=== PATIENT | female | born 1990 | race Caucasian/White ===

== ENCOUNTER → 2019-06-14 18:34 | Outpatient (BNVA) | payer OTHER, SELFPAY | PROVIDERS: Family Provider Nurse Practitioner; PCP General Practice; Visit Provider Nurse Practitioner | DX: R05 Cough (principal) | CPT/HCPCS: 87804 ==

== ENCOUNTER 2019-09-06 17:29 | Emergency (ER) | payer OTHER, SELFPAY ==
[2019-09-06 17:38] VITALS: BP 116/92; PULSE 83; RESP 14; TEMP 36.5; O2SAT 100; BMI 29.2
--- NOTE | 2019-09-06 17:54 | W.ED.BACK ---
HPI - Back Pain/Injury General: Chief Complaint: Back Pain/Injury Stated Complaint: back pain/injury Time Seen by Provider: 09/06/19 17:43 History of Present Illness: HPI Narrative: Patient states 2 days ago she was taking a bag of mulch from the porch to the garden she twisted with a bag motor hand and she felt discomfort in her back she is able continue work all day but when she woke up this morning she is doing a lot worse having problems get up and out of chair actually she is in a lot of pain when she does certain movements and and possibly had a syncopal episode when she had to sit on the toilet and her boyfriend had to help her to the toilet. She has a seizure history but did not have a seizure today. Says her back hurts she has a history this has had MRIs and does have a bulging disc. MD elicited complaint: back pain Pertinent past history: prior back pain Onset (ago): hour(s) Timing: constant Severity: severe Similar Symptoms Previously: Yes Quality: burning Location: right lower back Radiation: right upper leg Exacerbating factors: sitting upright, walking and lifting Relieving factors: supine Context: while lifting and turning/twisting Associated symptoms: Reports no associated symptoms; Deny abdominal pain, chills, fever(s), nausea or vomiting Review of Systems Const: Denies: fever, chills or body aches Eyes: Denies: change in vision or blurry vision ENMT: Denies: throat pain or nasal congestion Card: Denies: chest pain or shortness of breath on exertion Resp: Denies: shortness of breath, productive cough or non-productive cough GI: Denies: abdominal pain, nausea or vomiting Musc: Reports: back pain; Denies: extremity pain Skin/Breast: Denies: rash Neuro: Denies: headache Psych: Denies: anxiety or depression Luciano/Lymph: Denies: easy bruising PFSH ED PFSH: Social History (Updated 06/14/19 @ 18:28 by Deborah Gabriel LPN) Smoking and tobacco status: never smoked Female Reproductive History: Date of last menstrual period: 08/24/19 Physical Exam Const: COMMON NORMALS: no apparent distress, average body habitus and oriented x3 HENMT: COMMON NORMALS: normocephalic HEAD & SCALP: normal to inspection and normocephalic FACE & SINUS: normal facial exam Eye: COMMON NORMALS: conjunctivae normal GENERAL EYE: normal appearance of both eyes CONJUNCTIVA: Yes conjunctivae normal Neck/C-Spine: COMMON NORMALS: no JVD Chest: COMMONS NORMALS: inspection of chest normal Resp: COMMON NORMALS: normal respiratory effort and clear to auscultation bilaterally AUSCULTATION: clear to auscultation bilaterally Cardio: COMMON NORMALS: no JVD, regular rate and regular rhythm RATE: regular rate RHYTHM: regular rhythm GI: COMMON NORMALS: normal to inspection, nondistended, normoactive bowel sounds Back/Pelvis: LUMBAR SPINE/LOWER BACK: Yes pain with ROM, No paraspinal muscle tenderness, Yes straight leg raise positive right and No straight leg raise positive left Extremity: COMMON NORMALS: normal to inspection and full ROM Neuro: COMMON NORMALS: oriented x3 Course Vital Signs: Vital signs: Vital Signs Temperature 97.7 F 09/06/19 17:38 Pulse Rate 83 09/06/19 17:38 Respiratory Rate 14 09/06/19 17:38 Blood Pressure 116/92 09/06/19 17:38 Pulse Oximetry 100 09/06/19 17:38 Discharge Plan Discharge Condition: Good Coding Level of Care Code ED Entry Level Financial Analyst for Meghann Bacon
[2019-09-06] MEDS: cyclobenzaprine 10 mg Tablet PO (18:08)
[2019-09-06] MEDS: HYDROcodone-acetaminophen 7.5-325 mg Tablet 1 TAB PO (18:08)
[2019-09-06] MEDS: predniSONE 20 mg Tablet 60 MG PO (18:08)
[2019-09-06 18:58] VITALS: PULSE 80; RESP 17; O2SAT 100
== END 2019-09-06 18:45 | disposition home or self-care (01) ==
LOC: ER 18:33
PROVIDERS: Emergency Provider Nurse Practitioner Family; Family Provider Nurse Practitioner; PCP General Practice
DX: M54.9 Dorsalgia, unspecified (principal)
CPT/HCPCS: 12345; 99281; 99283; J7512

== ENCOUNTER 2019-10-04 06:57 | Outpatient (CLI) | payer OTHER, SELFPAY ==
--- NOTE | 2019-10-04 07:05 | MR_ITS ---
WS: [id number] MRI LUMBAR SPINE NONCONTRAST HISTORY: RT SIDE Sciatica; back pain, radiculopathy, degenerative disc disease. COMPARISON: None available. TECHNIQUE: Sagittal and axial multisequence imaging is submitted. Mild thoracolumbar scoliosis. No cord compression. Posterior lumbar alignment is straightened. No marrow edema or fracture. Mild disc space narrowing and desiccation at L5-S1. Conus terminates normally at L1-2 disc level. L1-L2: Normal. L2-L3: Normal. L3-L4: Normal. L4-L5: Mild annular disc bulging. Annular fissure in the LEFT foramen. There is a very shallow centra l disc protrusion. Slight encroachment upon the subarticular recesses, LEFT greater than RIGHT and ve ry mild narrowing of the central canal. L5-S1: Moderate to large RIGHT paracentral disc herniation extends into the subarticular recess. Disc herniation measures 10 x 12 mm. There is displacement of the RIGHT S1 nerve root and mass effect upo n the RIGHT lateral thecal sac. There is mild encroachment upon the LEFT subarticular recess due to d isc and facet disease. Mild bilateral foraminal stenosis. MR/MR lumbar spine wo con* [id number] IMPRESSION: 1. Moderate to large RIGHT paracentral disc protrusion extends into the RIGHT subarticular recess at L5-S1 with displacement of the RIGHT S1 nerve root and m ild central stenosis. 2. Mild narrowing of the LEFT subarticular recess at L5-S1. 3. Very minimal narrowing of the central canal and subarticular recesses at L4 -5.
== END 2019-10-04 06:58 | disposition home or self-care (01) ==
LOC: RADSHAW 06:59
PROVIDERS: PCP Nurse Practitioner; Visit Provider Nurse Practitioner
DX: M54.31 Sciatica, right side (principal); M51.36 Other intervertebral disc degeneration, lumbar region; M54.9 Dorsalgia, unspecified; M51.27 Other intervertebral disc displacement, lumbosacral region
CPT/HCPCS: 72148

== ENCOUNTER → 2019-12-05 11:06 | Outpatient (BNVA) | payer OTHER, SELFPAY | PROVIDERS: PCP Nurse Practitioner; Visit Provider Family Medicine | DX: F41.1 Generalized anxiety disorder (principal) | CPT/HCPCS: 80053; 84443; 85025 ==

== ENCOUNTER → 2020-01-22 10:57 | Outpatient (BNVA) | payer OTHER, SELFPAY | PROVIDERS: PCP Nurse Practitioner; Visit Provider Nurse Practitioner Family | DX: Z20.828 Contact with and (suspected) exposure to other viral communicable diseases (principal) | CPT/HCPCS: 87635 ==

== ENCOUNTER → 2020-03-09 15:59 | Outpatient (BNVA) | payer OTHER, SELFPAY | PROVIDERS: PCP Nurse Practitioner; Visit Provider Family Medicine | DX: Z11.59 Encounter for screening for other viral diseases (principal); Z20.828 Contact with and (suspected) exposure to other viral communicable diseases | CPT/HCPCS: 87635 ==

== ENCOUNTER → 2020-04-02 09:24 | Outpatient (BNVA) | payer OTHER, SELFPAY | PROVIDERS: PCP Nurse Practitioner; Visit Provider Surgery | DX: Z20.828 Contact with and (suspected) exposure to other viral communicable diseases (principal) | CPT/HCPCS: 87635 ==

== ENCOUNTER 2020-04-09 10:03 | Day surgery (SDC) | payer OTHER, SELFPAY ==
[2020-04-07 12:43] VITALS: BMI 29.4
[2020-04-09 10:11] VITALS: BP 131/79; PULSE 75; RESP 18; TEMP 36.4; O2SAT 98
[2020-04-09 10:26] LABS: OR HCG Qualitative Urine Negative (Negative)
--- NOTE | 2020-04-09 10:31 | ANES.PREANE2 ---
Pre-Anesthetic Assessment Pre-Anesthetic Assessment: Height/Weight: Height 1.78 m Weight 92.986 kg Temp Pulse Resp BP Pulse Ox 97.6 F 75 18 131/79 98 04/09/20 10:11 04/09/20 10:11 04/09/20 10:11 04/09/20 10:11 04/09/20 10:11 Preop Diagnosis: upper gi symptoms Proposed Procedure: Operation Date: 04/09/20 11:00 Proposed Procedures p EGD 15083 k21.9(Not Applicable) - Jalil Olivier MD Familial anesthetic complications: None Was Beta Aisha taken within 24 hours: N/A Last intake: Intake Last Liquid Date 04/09/20 Last Liquid Time 06:00 Last Solid Date 04/08/20 Last Solid Time 20:30 Social: Social History: No alcohol and No tobacco Comment: occassional Marijuana use Exam: Pre-Anes Outpt Exam: alert, oriented x 3, clear to auscultation bilaterally and regular rate & rhythm Airway: Cervical ROM: WNL MP: 2 Dentition: Other (fillings and permanent retainer) GI: GI: GERD Neuropsych: Neuropsych: Anxiety Anesthetic Plan: ASA status: 1 Anesthesia: MAC Risk of > 500 ml blood loss (7ml/kg in children): No PFSH Anesthesia PFSH: Medical History (Updated 03/30/20 @ 14:34 by Jalil Olivier MD) GERD (gastroesophageal reflux disease) Herniated disc History of anemia Umbilical hernia Surgical History History of removal of cyst sebaceous cyst. Family History Mother Cancer breast Other CAD (coronary artery disease) Diabetes Hypertension Psychiatric illness Rheumatoid arthritis Denies family history of Anesthesia complication Bleeding disorder Social History Smoking and tobacco status: never smoked Alcohol intake: current Alcohol intake frequency: holidays/special occasions only Household members: significant other Marital status: Single Current occupational status: employed History of recent travel: No Female Reproductive History: Date of last menstrual period: 08/24/19 Data Anesthesia Other Labs: Laboratory Results - last 48 hr 04/09/20 10:23 Urine HCG, Qual Negative Cardiac Studies: No Data to Display
[2020-04-09] MEDS: sodium chloride 0.9% 1,000 ML 30 ML IV (10:36)
--- NOTE | 2020-04-09 10:40 | W.PM.OPSUD ---
Surgery/Procedure H&P Update DATE OF PROCEDURE: April 09, 2020 DATE H&P PERFORMED: 03/30/20 H&P UPDATE INFORMATION: I have reviewed H&P completed within last 30 days, I have examined patient prior to procedure and No changes to prior documentation PREOP DIAGNOSIS: upper gi symptoms PLANNED PROCEDURE: Operation Date: 04/09/20 11:00 Proposed Procedures p EGD 03486 k21.9(Not Applicable) - Jalil Olivier MD
[2020-04-09 11:08] VITALS: BP 106/83; PULSE 78; RESP 16; TEMP 36.8; O2SAT 96
[2020-04-09 11:23] VITALS: BP 123/87; PULSE 75; RESP 16; O2SAT 99
== END 2020-04-09 11:40 | disposition home or self-care (01) ==
PROVIDERS: PCP Family Medicine; Visit Provider Surgery
PROC: 0DJ08ZZ Inspection of Upper Intestinal Tract, Via Natural or Artificial Opening Endoscopic (ICD-10-PCS; CPT 43235; principal; 2020-04-09 11:00)
DX: K21.9 Gastro-esophageal reflux disease without esophagitis (principal); K42.9 Umbilical hernia without obstruction or gangrene; K29.70 Gastritis, unspecified, without bleeding
CPT/HCPCS: 12345; 43239; 84703; 88305; J2704; J3490; J7030

== ENCOUNTER 2020-04-21 07:08 | Outpatient (CLI) | payer OTHER, SELFPAY ==
--- NOTE | 2020-04-21 07:15 | US_ITS ---
WS: [id number] RIGHT UPPER QUADRANT ULTRASOUND HISTORY: R10.13 - Epigastric pain COMPARISON: None available. Liver: 15.8 cm in length. Normal size liver. No bile duct dilatation or mass. Gallbladder: Normally distended gallbladder with no stones or wall thickening. CBD: 0.3 cm Pancreas: Normal size and echogenicity. Right kidney: 9.2 cm in length. Normal size and echogenicity. No hydronephrosis or mass. Aorta and IVC: Unremarkable abdominal aorta and IVC. No ascites. US/US gall bladder [id number] IMPRESSION: Normal RIGHT upper quadrant ultrasound.
== END 2020-04-21 07:09 | disposition home or self-care (01) ==
PROVIDERS: PCP Family Medicine; Visit Provider Surgery
DX: R10.13 Epigastric pain (principal)
CPT/HCPCS: 76705

== ENCOUNTER 2020-05-13 09:29 | Outpatient (CLI) | payer OTHER, SELFPAY ==
--- NOTE | 2020-05-13 10:00 | NM_ITS ---
WS: [id number] NUCLEAR MEDICINE HIDA SCAN CLINICAL INFORMATION: R10.11 - Right upper quadrant pain TECHNIQUE: Following intravenous administration of mCi of technetium 99m mebrofenin, images of the ab domen were obtained over the course of 60 minutes. Next, gallbladder ejection fraction was determined by obtaining preprandial and one-hour postprandial images of the gallbladder following oral ingestio n of Ensure. COMPARISON: Ultrasound April 21, 2020 FINDINGS: Normal hepatic uptake at 5 minutes. Gallbladder is visualized by 15 minutes. No evidence of acute cho lecystitis. Normal hepatic excretion. Normal small bowel activity. No evidence of choledocholithiasis . Gallbladder ejection fraction 86% within normal limits. No evidence of chronic cholecystitis. NM/NM hepatobiliary w phar* [id number] IMPRESSION: 1. No evidence of acute or chronic cholecystitis. 2. Gallbladder ejection fraction 86% within normal limits.
== END 2020-05-13 09:30 | disposition home or self-care (01) ==
PROVIDERS: PCP Family Medicine; Visit Provider Surgery
DX: R10.11 Right upper quadrant pain (principal)
CPT/HCPCS: 78227; A9537

== ENCOUNTER → 2020-10-27 11:30 | Outpatient (BNVA) | payer OTHER, SELFPAY | PROVIDERS: PCP Family Medicine; Referring Provider Family Medicine; Visit Provider Nurse Practitioner Women's Health | DX: N92.6 Irregular menstruation, unspecified (principal); Z32.01 Encounter for pregnancy test, result positive | CPT/HCPCS: 81025 ==

== ENCOUNTER → 2020-11-23 11:11 | Outpatient (BNVA) | payer OTHER, SELFPAY | PROVIDERS: PCP Family Medicine; Visit Provider Obstetrics & Gynecology | DX: Z34.01 Encounter for supervision of normal first pregnancy, first trimester (principal); Z83.49 Family history of other endocrine, nutritional and metabolic diseases; F41.1 Generalized anxiety disorder; K21.9 Gastro-esophageal reflux disease without esophagitis | CPT/HCPCS: 80307; 84315; 86592; 86762; 86803; 86850; 86900; 87086; 87340; 87806 ==

== ENCOUNTER → 2021-01-01 08:53 | Outpatient (BNVA) | payer BC, MEDICAID, SELFPAY | PROVIDERS: PCP Family Medicine; Visit Provider Obstetrics & Gynecology | DX: Z34.01 Encounter for supervision of normal first pregnancy, first trimester (principal); F41.1 Generalized anxiety disorder; K21.9 Gastro-esophageal reflux disease without esophagitis; Z83.49 Family history of other endocrine, nutritional and metabolic diseases | CPT/HCPCS: 84315; 85025; 87491; 87591; 87661; 88175 ==

== ENCOUNTER → 2021-02-11 16:02 | Outpatient (BNVA) | payer BC, MEDICAID, SELFPAY | PROVIDERS: PCP Family Medicine; Visit Provider Obstetrics & Gynecology | DX: Z34.01 Encounter for supervision of normal first pregnancy, first trimester (principal) | CPT/HCPCS: 84315; 87077; 87086; 87184 ==

== ENCOUNTER 2021-06-14 18:09 | Inpatient (IN) | payer BC, MEDICAID, SELFPAY ==
[2021-06-14] VITALS (7 sets, daily range): BP systolic 126–140; BP diastolic 78–93; PULSE 72–85; RESP 16; BMI 37.3
[2021-06-14 19:25] LABS: Basophils % 0.4 %; Eosinophils # 0.1 10^3/uL (0.0-0.8); Eosinophils % 0.8 %; Hematocrit 37.2 % (37.0-47.0); Hemoglobin 12.3 g/dL (11.5-15.3); Lymphocytes # 2.7 10^3/uL (0.8-4.8); Lymphocytes % 28.6 %; Mean Corpuscular HGB Conc 33.1 g/dL (30.0-36.0); Mean Corpuscular Hemoglobin 31.5 pg (28.0-34.0); Mean Corpuscular Volume 95.4 fl (81-99); Mean Platelet Volume 10.3 fL (7.4-10.4); Monocytes # 0.5 10^3/uL (0.2-0.9); Monocytes % 5.7 %; Neutrophils # 5.97 10^3/uL (1.8-7.7); Neutrophils % 64.2 %; Nucleated Red Blood Cells % 0 %; Platelet Count 240 10^3/cmm (130-400); Red Cell Distribution Width 12.6 % (12.1-15.1); White Blood Count 9.3 10^3/uL (4.0-10.0)
[2021-06-14] MEDS: miSOPROStol 100 mcg tablet 25 MCG VAGINAL ×2 (19:41→23:45)
[2021-06-14 20:23] LABS: Add Urine Culture? No; Add Urine Microscopic? YES; Bacteria Urine 3+ /hpf; Bilirubin Urine Neg (Negative); Blood Urine 3+ (Negative); Glucose Urine UA Norm (Normal); Ketones Urine 1+ (Negative); Leukocyte Esterase Urine Negative (Negative); Mucus Urine 3+ /hpf; Nitrate Urine Negative (Negative); Protein Urine Neg (Negative); RBC Urine >100 /hpf (0-2); Squamous Epithelial Cell Urine 15-25 /hpf (0-5); Urine Appearance Hazy (CLEAR); Urine Color Yellow (Yellow); Urobilinogen Urine Norm (Negative); WBC Urine 0-4 /hpf (0-5); pH Urine 5 (5-7)
[2021-06-14 20:27] LABS: Amphetamines Screen Urine Negative (Negative); Barbiturates Screen Urine Negative (Negative); Benzodiazepines Screen Urine Negative (Negative); Cocaine Screen Urine Negative (Negative); Opiate Screen Urine Negative (Negative); PCP Screen Urine Negative (Negative); THC Screen Urine Negative (Negative)
[2021-06-14 20:45] LABS: UPRO/UCREAT Ratio 0.12 mg/mg CR; Urine Creatinine 212 mg/dL (28-217); Urine Protein Random 26 mg/dL
[2021-06-14 20:46] LABS: Alanine Aminotransferase 8 U/L (0-33); Albumin Level 3.8 g/dL (3.5-5.2); Alkaline Phosphatase 135 IU/L (35-105); Anion Gap 15.9 (5-19); Aspartate Amino Transferase 14 U/L (0-32); Blood Urea Nitrogen 14 mg/dL (6-20); Calcium 9.4 mg/dL (8.5-10.5); Carbon Dioxide 19 mmol/L (22-29); Chloride 103 mmol/L (98-107); Glucose 102 mg/dL (65-115); Osmolality Calculated 279 mOsm/kg (285-295); Potassium 3.9 mmol/L (3.5-5.1); Sodium 134 mmol/L (136-145); Total Bilirubin 0.2 mg/dL (0.15-1.2); Total Protein 6.8 g/dL (6.6-8.7); Uric Acid 4.7 mg/dL (2.4-5.7)
[2021-06-14 22:00] LABS: Adenovirus Not Detected (NOT DETECT); Chlamydia Pneumoniae Not Detected (NOT DETECT); Coronavirus 229E,HKU1,NL63,OC4 Not Detected (NOT DETECT); Human Metapneumovirus Not Detected (NOT DETECT); Human Rhinovirus/Enterovirus Not Detected (NOT DETECT); Influenza A Not Detected (NOT DETECT); Influenza A H1 Not Detected (NOT DETECT); Influenza A H1-2009 Not Detected (NOT DETECT); Influenza A H3 Not Detected (NOT DETECT); Influenza B Not Detected (NOT DETECT); Mycoplasma Pneumoniae Not Detected (NOT DETECT); Parainfluenza Virus Type 1 Not Detected (NOT DETECT); Parainfluenza Virus Type 2 Not Detected (NOT DETECT); Parainfluenza Virus Type 3 Not Detected (NOT DETECT); Parainfluenza Virus Type 4 Not Detected (NOT DETECT); Respiratory Syncytial Virus A Not Detected (NOT DETECT); Respiratory Syncytial Virus B Not Detected (NOT DETECT); SARS-COV-2 Not Detected (NOT DETECT)
[2021-06-15] VITALS (110 sets, daily range): BP systolic 106–191; BP diastolic 53–114; PULSE 58–91; RESP 16–18; TEMP 36.2–36.4; O2SAT 93–100
[2021-06-15] MEDS: oxytocin 30 UNIT/500 ML BAG IV (08:44)
[2021-06-15] MEDS: lactated ringers 1,000 ML 999 ML IV ×2 (13:22→14:37)
--- NOTE | 2021-06-15 14:50 | PC.NURSE ---
Epidural first epidural attempt resulted in positive test dose catheter removed.
--- NOTE | 2021-06-15 16:42 | P.ANESASSM_ITS ---
Pre-Anesthetic Assessment Height/Weight: Height 1.8 m Weight 121.563 kg Temp Pulse Resp BP Pulse Ox 97.3 F L 72 18 164/78 97 06/15/21 16:30 06/15/21 16:36 06/15/21 15:00 06/15/21 16:36 06/15/21 15:15 Preop Diagnosis: upper gi symptoms Labor epidural Familial anesthetic complications: None Was Beta Aisha taken within 24 hours: N/A Was Clonidine taken within 24 hours: N/A Social No alcohol and No tobacco Exam alert, oriented x 3, clear to auscultation bilaterally and regular rate & rhythm Airway Submandibular: within normal limits Cervical ROM: within normal limits Mallampati: Class II Dentition: full CV/HEM Anemia GI Gastroesophageal Reflux Disease Neuropsych Anxiety Anesthetic Plan ASA status: 2 Anesthesia: Regional (specify below) (Labor epidural) Risk of > 500 ml blood loss (7ml/kg in children): No Medications/Allergies Home Medications Medication Instructions Recorded Confirmed Last Taken Type buspirone 5 mg tablet 5 mg PO TID PRN #90 tab 06/24/20 02/11/21 Unknown Rx prenat.vits,joellen,euv-gvjv-uvwhm 1 tab PO DAILY 11/10/20 02/11/21 Unknown History d-mannose 500 mg capsule 500 mg PO DAILY PRN cap 11/23/20 02/11/21 Unknown History citalopram 10 mg tablet 10 mg PO DAILY #90 tab 02/08/21 02/11/21 Unknown Rx famotidine 20 mg tablet 20 mg PO .ONCE A DAY 90 Days #90 02/08/21 02/11/21 Unknown Rx tab ferrous sulfate 325 mg (65 mg 325 mg PO DAILY 02/08/21 02/11/21 Unknown History iron) tablet sulfamethoxazole 800 1 tab PO BID #14 tab 02/15/21 Unknown Rx mg-trimethoprim 160 mg tablet (Bactrim DS) Allergies Allergy/AdvReac Type Severity Reaction Status Date / Time Penicillins Allergy Mild rash Verified 02/11/21 15:49 st tino Allergy rash Uncoded 02/11/21 15:49 Current Medications Generic Name Dose Route Start Last Admin Trade Name Freq PRN Reason Stop Dose Admin Lactated Ringer's 1,000 mls @ 999 mls/hr 06/14/21 19:14 06/15/21 14:37 Lactated Ringers IV 999 mls/hr .Q1H1M PRN Administration BLEEDING Oxytocin 30 unit in 500 mls @ 1 mls/hr 06/15/21 07:30 06/15/21 12:45 Pitocin IV 30 milliunit/min .Q24H INDER 30 mls/hr Titration Protocol 1 MILLIUNIT/MIN PFSH Anesthesia Medical History GERD (gastroesophageal reflux disease) Herniated disc History of anemia No pertinent past medical history neghx: htn,dm,thyroid,dvt/pe PCP: Dr. Velazquez Umbilical hernia Surgical History H/O esophagogastroduodenoscopy (04/09/20) History of removal of cyst sebaceous cyst- on her cheek Family History Mother Breast cancer dx age 42-- stage 0; mastectomy no adjuvant therapy Grandmother Diabetes Paternal Heart disease Maternal Father Heart disease Hypertension Thyroid disease Denies family history of Colon cancer Ovarian cancer Uterine cancer Stroke Social History Smoking and tobacco status: former smoker Female Reproductive History Date of last menstrual period: 08/24/19 : 1 Data Anesthesia : 06/14/21 18:58 06/14/21 18:50 Short CBC 06/14/21 Range/Units 18:58 WBC 9.3 (4.0-10.0) 10^3/uL Hgb 12.3 (11.5-15.3) g/dL Hct 37.2 (37.0-47.0) % MCV 95.4 (81-99) fl Plt Count 240 (130-400) 10^3/cmm Neut % (Auto) 64.2 % Neut # (Auto) 5.97 (1.8-7.7) 10^3/uL BMP 06/14/21 18:50 Sodium 134 L Potassium 3.9 Chloride 103 Carbon Dioxide 19 L BUN 14 Creatinine 0.5 Glucose 102 Calcium 9.4 Liver Function 06/14/21 Range/Units 18:50 Total Bilirubin 0.2 (0.15-1.2) mg/dL AST 14 (0-32) U/L ALT 8 (0-33) U/L Alkaline Phosphatase 135 H (35-105) IU/L Albumin 3.8 (3.5-5.2) g/dL Urine 06/14/21 Range/Units 18:50 Urine Color Yellow (Yellow) Urine Appearance Hazy A (CLEAR) Urine pH 5 (5-7) Ur Specific [place] 1.020 (1.005-1.030) Urine Protein Neg (Negative) Urine Glucose (UA) Norm (Normal) Urine Ketones 1+ H (Negative) Urine Nitrate Negative (Negative) Urine Bilirubin Neg (Negative) Ur Leukocyte Esterase Negative (Negative) Urine RBC >100 H (0-2) /hpf Urine WBC 0-4 H (0-5) /hpf COVID Results 06/14/21 19:54 Coronavirus 229E (PCR) Not detected SARS-CoV-2 (PCR) Not detected Cardiac Studies: No Data to Display
--- NOTE | 2021-06-15 16:43 | ANES.PROC ---
Anesthesia Procedures Procedure/Date: 06/15/21 Epidural: Time Out Performed: Yes Consents Signed: Procedure Consent Consent: requested by attending/covering physician, from patient, risks and benefits reviewed and patient agrees to proceed Lumbar Level: L3-L4 Epidural position: sitting Epidural procedure: sterile prep of area, 1% lidocaine to numb the area, 18 g needle, neg for paresthesia, test dose given, 1.5% xylocaine 1:200k epi, placed PCEA, no systemic response, sterile dressing applied and 0.2% Ropiavacaine @ mls/hr (13) Additional Comments: RIGO at 8cm, cath at 13cm--took several times to place, not b/c of patient, first kit no needle, second catheter intravascular, third kit needle burred up and finally successful with kit four!
--- NOTE | 2021-06-15 16:45 | PM.MISC ---
Miscellaneous Note Purpose of Documentation: Patient c/o of hot spot , bolused 100mcg fent and 4mls of 0.2% rop.
--- NOTE | 2021-06-15 17:36 | PM.OPHPUD ---
Labor & Delivery H&P Update Date of Procedure: June 15, 2021 Date H&P Performed: 06/14/21 Changes to previous documentation: The patient presented to clinic for routine follow-up at 39 weeks gestation and her blood pressures were still mildly elevated. She had a biophysical profile of 8 out of 8. She was dipping 1+ protein in the urine in clinic. Due to the fact that she was already 39 weeks gestation decision was made to go ahead and proceed with induction Admission Diagnosis: IUP at 39 weeks Induced Hypertension
--- NOTE | 2021-06-15 17:43 | PM.DELIVERY ---
Delivery Note: Date of delivery: June 15, 2021 Pre-delivery diagnoses: IUP at 39 weeks gestation -induced hypertension Procedure: Normal spontaneous vaginal delivery Estimated blood loss (mL): 250 Pre-Delivery Course: The patient had routine care at [facility]. Her was complicated by -induced hypertension. She only had very mildly elevated blood pressures 140/90 occasionally. She did not require antihypertensives. She received weekly biophysical profiles at the end and growth ultrasounds. Her labs were unremarkable. Her 20-week ultrasound showed dilated left renal pelvis. Delivery: This is a 30-year-old G1 now P1 who was admitted for induction secondary to -induced hypertension. Her cervix was not very favorable so it was ripened overnight using Cytotec. She was then started on a Pitocin. She had artificial rupture of membranes with a copious amount of clear fluid. Her labor progressed rather well after that. She did receive an epidural for pain management. She had a normal spontaneous vaginal delivery of a viable male weight 3410 g, 7 pounds 8 ounces over an intact perineum. The infant had a loose nuchal cord x1 that was reduced upon delivery. The was suctioned at delivery and placed on the mother's chest. The cord was clamped and cut. The placenta was delivered grossly intact and normal to inspection. There was a left vaginal second-degree laceration that was sutured using 3-0 chromic. Mother and infant were doing well after delivery. Estimated blood loss 250 mL History History History 1 Term Miscarriages/Ectopic Living Children A&P Assessment and plan (1) (normal spontaneous vaginal delivery): Status: Acute (2) induced hypertension, delivered, current hospitalization: Status: Acute Coding Level of Care Code Acute Full Charge Bookkeeper for Chg Fwd Diagnoses (normal spontaneous vaginal delivery) O80 induced hypertension, delivered, current hospitalization O13.4
[2021-06-15] MEDS: lidocaine 2% INJ 20 mL INJECTION (17:46)
[2021-06-15] MEDS: docusate sodium 100 mg Capsule PO (18:36)
[2021-06-15] MEDS: oxytocin 30 UNIT/500 ML BAG 60 UNIT IV (18:48)
[2021-06-15] MEDS: lanolin oint 7 gm 1 APPLIC TOPICAL (21:16)
[2021-06-15] MEDS: ibuprofen 800 mg tablet PO (21:16)
[2021-06-15] MEDS: benzocaine-menthol 78 gm Canister 1 SPRAY TOPICAL (21:16)
[2021-06-16] VITALS (10 sets, daily range): BP systolic 122–168; BP diastolic 70–92; PULSE 66–89; RESP 17–18; TEMP 36.1–36.8
[2021-06-16 06:38] LABS: Hematocrit 34.1 % (37.0-47.0); Mean Corpuscular HGB Conc 32.3 g/dL (30.0-36.0); Mean Corpuscular Hemoglobin 31.2 pg (28.0-34.0); Mean Corpuscular Volume 96.6 fl (81-99); Mean Platelet Volume 10.4 fL (7.4-10.4); Platelet Count 195 10^3/cmm (130-400); Red Blood Count 3.53 10^6/uL (4.1-5.3); Red Cell Distribution Width 12.6 % (12.1-15.1); White Blood Count 8.8 10^3/uL (4.0-10.0)
[2021-06-16] MEDS: ibuprofen 800 mg tablet PO ×3 (08:57→21:27)
[2021-06-16] MEDS: docusate sodium 100 mg Capsule PO ×2 (08:57→18:42)
--- NOTE | 2021-06-16 09:09 | PC.NURSE ---
Patient denied her and citalopram this morning for this nurse because she had her home medications with her and took them both last night.
--- NOTE | 2021-06-16 15:52 | ANE.PACU2 ---
Inpatient post-anesthesia follow up: Airway intact: Yes Vital signs: Temperature 97.6 F Pulse Rate 89 Respiratory Rate 17 Blood Pressure 128/76 Pulse Oximetry 97 Oxygen Delivery Me thod Room Air Oxygen Flow Rate Fraction of Inspir ed Oxygen Hydration adequate: Yes Nausea and vomiting: No Pain level: 1 Mental status: Baseline
--- NOTE | 2021-06-16 17:05 | P.PN_ITS ---
Subjective Subjective: day #1 doing well. She has some cramping with breast- feeding but otherwise pain is well controlled. Her bleeding is about average for . She is tolerating a regular diet and ambulating well. Vitals/I&O/Wt Last Vital Signs Temp 98.1 F 06/16/21 16:15 Pulse 89 06/16/21 12:00 Resp 18 06/16/21 16:15 BP 128/76 06/16/21 12:00 Pulse Ox 97 06/15/21 15:15 Weight last 48 hrs Weight 121.563 kg Physical Exam Narrative: Alert and oriented heart regular rate and rhythm, lungs clear to auscultation bilaterally, abdomen soft, fundus firm, extremities have edema but no calf tenderness Urinary Catheter Management: Bales Latex: Cath Placed During This Visit: yes, but has since been removed by the nurse Reason for Continuing Indwelling Catheter: Decision to DC Catheter Urinary Catheter Date of Insertion: 06/15/21 Urinary Catheter Time of Insertion: 13:13 Date Urinary Catheter Removed: 06/15/21 Time Urinary Catheter Discontinued: 16:50 Data : 06/16/21 05:50 06/14/21 18:50 A&P Assessment and plan (1) (normal spontaneous vaginal delivery): Routine care. is not latching on easily, they would benefit from another night stay to help work with nursing staff on breast-feeding. Status: Acute (2) induced hypertension, delivered, current hospitalization: A few mildly elevated blood pressures, still not requiring antihypertensives Status: Acute Attestations Medical Necessity Statement*: Routine care Coding Level of Care Code Acute Health Psychologist for Chg Fwd Diagnoses (normal spontaneous vaginal delivery) O80 induced hypertension, delivered, current hospitalization O13.4
[2021-06-17 03:23] VITALS: BP 139/87; PULSE 68; TEMP 36.2
[2021-06-17] MEDS: docusate sodium 100 mg Capsule PO (09:11)
[2021-06-17] MEDS: ibuprofen 800 mg tablet PO (09:11)
--- NOTE | 2021-06-17 09:12 | PC.NURSE ---
Patient took her celexa and vitamin already from her home medications she takes those in the evening
[2021-06-17 09:58] VITALS: BP 129/68; PULSE 73; TEMP 35.9
[2021-06-17 10:00] VITALS: BP 129/68; PULSE 73; RESP 17; TEMP 36.6; O2SAT 97
--- NOTE | 2021-06-17 12:23 | PM.DCS ---
Discharge Providers Date of Admission: 06/14/21 18:09 Date of Discharge: June 17, 2021 Attending Provider at Admission: Radhika Armendariz MD Attending Provider at Discharge: Radhika Armendariz MD Primary Care Provider: Zakia Velazquez DO Diagnoses at Discharge Discharge Diagnosis (1) (normal spontaneous vaginal delivery): Status: Acute (2) induced hypertension, delivered, current hospitalization: Status: Acute Reason for Visit Reason for Visit: Induction Hospital Course Hospital Course This is a 30-year-old G1 now P1 who had a normal spontaneous vaginal delivery of a viable male . She had gestational hypertension that did not require medications during . Her blood pressures have been averaging 130s over 80s. She is ambulating, tolerating a regular diet and has minimal vaginal bleeding. She is comfortable with discharge home. Physical Exam Narrative: Sitting up in bed nursing, pupils equal round reactive to light, extraocular movements intact, abdomen soft nontender, fundus is firm, extremities have 2+ edema but no calf tenderness. Urinary Catheter Management: Bales Latex: Cath Placed During This Visit: yes, but has since been removed by the nurse Reason for Continuing Indwelling Catheter: Decision to DC Catheter Urinary Catheter Date of Insertion: 06/15/21 Urinary Catheter Time of Insertion: 13:13 Date Urinary Catheter Removed: 06/15/21 Time Urinary Catheter Discontinued: 16:50 Discharge Data Studies Completed and Pending Laboratory Results WBC 8.8 10^3/uL (4.0-10.0) 06/16/21 05:50 RBC 3.53 10^6/uL (4.1-5.3) L 06/16/21 05:50 Hgb 11.0 g/dL (11.5-15.3) L 06/16/21 05:50 Hct 34.1 % (37.0-47.0) L 06/16/21 05:50 MCV 96.6 fl (81-99) 06/16/21 05:50 MCH 31.2 pg (28.0-34.0) 06/16/21 05:50 MCHC 32.3 g/dL (30.0-36.0) 06/16/21 05:50 RDW 12.6 % (12.1-15.1) 06/16/21 05:50 Plt Count 195 10^3/cmm (130-400) 06/16/21 05:50 MPV 10.4 fL (7.4-10.4) 06/16/21 05:50 Neut % (Auto) 64.2 % 06/14/21 18:58 Lymph % (Auto) 28.6 % 06/14/21 18:58 [place] % (Auto) 5.7 % 06/14/21 18:58 Eos % (Auto) 0.8 % 06/14/21 18:58 Baso % (Auto) 0.4 % 06/14/21 18:58 Neut # (Auto) 5.97 10^3/uL (1.8-7.7) 06/14/21 18:58 Lymph # (Auto) 2.7 10^3/uL (0.8-4.8) 06/14/21 18:58 [place] # (Auto) 0.5 10^3/uL (0.2-0.9) 06/14/21 18:58 Eos # (Auto) 0.1 10^3/uL (0.0-0.8) 06/14/21 18:58 Baso # (Auto) 0.0 10^3/uL (0.0-0.1) 06/14/21 18:58 Nucleated RBC % (auto) 0 % 06/14/21 18:58 Nucleated RBCs # 0.0 /100WBC 06/14/21 18:58 Sodium 134 mmol/L (136-145) L 06/14/21 18:50 Potassium 3.9 mmol/L (3.5-5.1) 06/14/21 18:50 Chloride 103 mmol/L (98-107) 06/14/21 18:50 Carbon Dioxide 19 mmol/L (22-29) L 06/14/21 18:50 Anion Gap 15.9 (5-19) 06/14/21 18:50 BUN 14 mg/dL (6-20) 06/14/21 18:50 Creatinine 0.5 mg/dL (0.5-0.9) 06/14/21 18:50 GFR Calculation 143.0 mL/min (90-130) H 06/14/21 18:50 Glucose 102 mg/dL (65-115) 06/14/21 18:50 Calculated Osmolality 279 mOsm/kg (285-295) L 06/14/21 18:50 Uric Acid 4.7 mg/dL (2.4-5.7) 06/14/21 18:50 Calcium 9.4 mg/dL (8.5-10.5) 06/14/21 18:50 Total Bilirubin 0.2 mg/dL (0.15-1.2) 06/14/21 18:50 AST 14 U/L (0-32) 06/14/21 18:50 ALT 8 U/L (0-33) 06/14/21 18:50 Alkaline Phosphatase 135 IU/L (35-105) H 06/14/21 18:50 Total Protein 6.8 g/dL (6.6-8.7) 06/14/21 18:50 Albumin 3.8 g/dL (3.5-5.2) 06/14/21 18:50 Globulin 3.0 g/dL (1.3-4.6) 06/14/21 18:50 Urine Color Yellow (Yellow) 06/14/21 18:50 Urine Appearance Hazy (CLEAR) A 06/14/21 18:50 Urine pH 5 (5-7) 06/14/21 18:50 Ur Specific [place] 1.020 (1.005-1.030) 06/14/21 18:50 Urine Protein Neg (Negative) 06/14/21 18:50 Urine Glucose (UA) Norm (Normal) 06/14/21 18:50 Urine Ketones 1+ (Negative) H 06/14/21 18:50 Urine Blood 3+ (Negative) H 06/14/21 18:50 Urine Nitrate Negative (Negative) 06/14/21 18:50 Urine Bilirubin Neg (Negative) 06/14/21 18:50 Urine Urobilinogen Norm mg/dL (Negative) 06/14/21 18:50 Ur Leukocyte Esterase Negative (Negative) 06/14/21 18:50 Urine RBC >100 /hpf (0-2) H 06/14/21 18:50 Urine WBC 0-4 /hpf (0-5) H 06/14/21 18:50 Ur Squamous Epith Cells 15-25 /hpf (0-5) H 06/14/21 18:50 Amorphous Sediment Not Reportable 06/14/21 18:50 Urine Bacteria 3+ /hpf (NONE) H 06/14/21 18:50 Urine Mucus 3+ /hpf 06/14/21 18:50 U Random Total Protein 26 mg/dL 06/14/21 18:50 Urine Creatinine 212 mg/dL (28-217) 06/14/21 18:50 Protein/Creatinin Ratio 0.12 mg/mg CR 06/14/21 18:50 Urine Opiates Screen Negative ng/mL (Negative) 06/14/21 18:50 Ur Barbiturates Screen Negative ng/mL (Negative) 06/14/21 18:50 Ur Phencyclidine Scrn Negative ng/mL (Negative) 06/14/21 18:50 Ur Amphetamines Screen Negative ng/mL (Negative) 06/14/21 18:50 U Benzodiazepines Scrn Negative ng/mL (Negative) 06/14/21 18:50 Urine Cocaine Screen Negative ng/mL (Negative) 06/14/21 18:50 U Marijuana (THC) Screen Negative ng/mL (Negative) 06/14/21 18:50 Coronavirus 229E (PCR) Not detected (NOT DETECT) 06/14/21 19:54 SARS-CoV-2 (PCR) Not detected (NOT DETECT) 06/14/21 19:54 Vitals Last Vital Signs Temp 97.9 F 06/17/21 10:00 Pulse 73 06/17/21 10:00 Resp 17 06/17/21 10:00 BP 129/68 06/17/21 10:00 Pulse Ox 97 06/17/21 10:00 Discharge Plan Discharge Patient Disposition: Home Condition: Stable Prescriptions: Continued buspirone 5 mg tablet 5 mg PO TID PRN (Reason: anxiety) Qty: 90 0RF d-mannose 500 mg capsule 500 mg PO DAILY PRN0RF ferrous sulfate 325 mg (65 mg iron) tablet 325 mg PO DAILY 0RF citalopram 10 mg tablet 10 mg PO DAILY Qty: 90 1RF famotidine 20 mg tablet 20 mg PO .ONCE A DAY 90 Days Qty: 90 1RF Rx Instructions: Please disregard prior rx prenat.vits,joellen,[id number]-[id number] Tablet 1 tab PO DAILY 0RF Discontinued sulfamethoxazole-trimethoprim [Bactrim DS] 800-160 mg tablet 1 tab PO BID Qty: 14 0RF Discharge Orders: Discharge Order (Routine); Ordered 06/17/21 Ordered By: Radhika Armendariz Discharge Diet: Usual diet Discharge Activity: Limit activity as instructed Patient Instructions: Depression (DC), Bleeding (DC), Preeclampsia and Eclampsia After Delivery (GEN), COVID-19 and (GEN), OB Discharge Report, OB Food/Drug Interaction Guide, OB Care at Home, Opioid Safety, OB Home Care, OB Vaginal Deliveries Discharge Attestations Time Spent in Discharge Care*: less than 30 min Quality Metrics Clinical Quality Measures [ No reported AMI, CVA or VTE this stay] Coding Level of Care Code Acute Chg FW DC note Diagnoses (normal spontaneous vaginal delivery) O80 induced hypertension, delivered, current hospitalization O13.4
[2021-06-17 12:32] VITALS: BP 128/73; PULSE 73
[2021-06-17 12:36] VITALS: BP 128/73; PULSE 66; RESP 17; TEMP 36.3; O2SAT 99
[2021-06-17 13:45] VITALS: BP 128/73; PULSE 66; RESP 17; TEMP 36.3; O2SAT 99
== END 2021-06-17 13:40 | disposition home or self-care (01) | DRG 807 ==
PROVIDERS: Admitting Provider Family Medicine; PCP Family Medicine; Visit Provider Family Medicine
DX: O13.4 Gestational [pregnancy-induced] hypertension without significant proteinuria, complicating childbirth (principal); Z37.0 Single live birth; Z3A.39 39 weeks gestation of pregnancy; O69.81X0 Labor and delivery complicated by cord around neck, without compression, not applicable or unspecified; O71.4 Obstetric high vaginal laceration alone
CPT/HCPCS: 36415; 51702; 59409; 80053; 80306; 81001; 82570; 84156; 84550; 85025; 85027; 87635; 96374; J2795; J3010

== ENCOUNTER 2022-06-20 06:25 | Outpatient (CLI) | payer BC, MEDICAID, SELFPAY ==
--- NOTE | 2022-06-20 | US_ITS ---
WS: [id number] EARLY OBSTETRICAL ULTRASOUND (<14 WEEKS). HISTORY: UNSURE OF LMP COMPARISON: None available. Transabdominal and transvaginal imaging is submitted. Intrauterine gestational sac is identified. The sac is irregular shaped with scalloped margins. Hypoechoic area involving a large portion of the ges tational sac diameter may be part of a resolving large subchorionic hemorrhage. There is a pole measuring 1.6 cm. [place]-rump length measurement corresponds to a gestation of 8 weeks and 0 days. No cardiac activity is identified. No yolk sac. There is no free fluid. The cervix is closed. Neither ovary is identified. No adnexal masses. US/US OB <= 14 weeks fetus [id number] IMPRESSION: 1. Single intrauterine gestational sac with crown-rump length. 2. No cardiac activity. 3. Embryonic demise. 4. Based upon the crown-rump length gestation estimated at 8 weeks and 0 days. Notified Radhika Armendariz MD at 06/20/2022 8:13 AM.
== END 2022-06-20 06:26 | disposition home or self-care (01) ==
LOC: RAD 06:29
PROVIDERS: PCP Family Medicine; Visit Provider Family Medicine
DX: Z36.87 Encounter for antenatal screening for uncertain dates (principal)
CPT/HCPCS: 76801

== ENCOUNTER 2022-06-22 05:49 | Day surgery (SDC) | payer BC, MEDICAID, SELFPAY ==
[2022-06-21 11:54] VITALS: BMI 34.8
[2022-06-22] VITALS (10 sets, daily range): BP systolic 106–139; BP diastolic 58–72; PULSE 72–98; RESP 11–20; TEMP 36.1–36.6; O2SAT 96–100
[2022-06-22] MEDS: sodium chloride 0.9% 1,000 ML 30 ML IV (06:33)
--- NOTE | 2022-06-22 06:35 | P.ANESASSM_ITS ---
Pre-Anesthetic Assessment Height/Weight: Height 1.8 m Weight 113.398 kg Temp Pulse Resp BP Pulse Ox O2 Del Method 97.0 F L 88 18 139/72 97 06/22/22 06:24 06/22/22 06:24 06/22/22 06:24 06/22/22 06:24 06/22/22 06:24 06/22/22 06:24 Preop Diagnosis: upper gi symptoms Operation Date: 06/22/22 07:10 Proposed Procedures p Dilation And Curettage w/ Suction(Not Applicable) - Radhika Armendariz MD Familial anesthetic complications: None Was Beta Aisha taken within 24 hours: N/A Was Clonidine taken within 24 hours: N/A Last intake: Intake Last Liquid Date 06/21/22 Last Liquid Time 20:00 Last Solid Date 06/21/22 Last Solid Time 18:30 Social No alcohol and No tobacco smoked marijuana yesterday Airway Mallampati: Class II Dentition: full CV/HEM Anemia GI Gastroesophageal Reflux Disease Neuropsych Anxiety Anesthetic Plan ASA status: 2 Anesthesia: General Risk of > 500 ml blood loss (7ml/kg in children): No Medications/Allergies Home Medications Medication Instructions Recorded Confirmed Last Taken Type buspirone 5 mg tablet 5 mg PO TID PRN anxiety #90 tabs 06/24/20 06/22/22 2 Months Ago Rx ~04/21/22 prenat.vits,joellen,[id number] 1 tab PO DAILY 11/10/20 06/22/22 06/20/22 History d-mannose 500 mg capsule 500 mg PO DAILY PRN uti 11/23/20 06/22/22 6 Months Ago History ~12/20/21 famotidine 20 mg tablet 20 mg PO .ONCE A DAY 90 days #90 02/08/21 06/22/22 06/20/22 Rx tabs citalopram 10 mg tablet 10 mg PO DAILY 06/22/22 06/22/22 06/20/22 History Allergies Allergy/AdvReac Type Severity Reaction Status Date / Time Penicillins Allergy Mild rash Verified 06/22/22 06:22 [facility] Allergy rash Uncoded 06/22/22 06:22 [facility] Anesthesia Medical History GERD (gastroesophageal reflux disease) Herniated disc History of anemia No pertinent past medical history neghx: htn,dm,thyroid,dvt/pe PCP: Dr. Velazquez Umbilical hernia Surgical History H/O esophagogastroduodenoscopy (04/09/20) History of removal of cyst sebaceous cyst- on her cheek Family History Mother Breast cancer dx age 42-- stage 0; mastectomy no adjuvant therapy Grandmother Diabetes Paternal Heart disease Maternal Father Heart disease Hypertension Thyroid disease Denies family history of Colon cancer Ovarian cancer Uterine cancer Stroke Social History Smoking and tobacco status: former smoker Female Reproductive History Date of last menstrual period: 03/21/23 Data Anesthesia Cardiac Studies: No Data to Display
--- NOTE | 2022-06-22 07:04 | PM.OPHPUD ---
Labor & Delivery H&P Update Date of Procedure: June 22, 2022 Date H&P Performed: 06/20/22 Changes to previous documentation: 8 week demise Admission Diagnosis: 8 week demise Preop diagnosis: 8 week demise with retained products Planned procedure: Operation Date: 06/22/22 07:10 Proposed Procedures p Dilation And Curettage w/ Suction(Not Applicable) - Radhika Armendariz MD
[2022-06-22] MEDS: miSOPROStol 200 mcg Tablet 800 MCG PR (07:35)
[2022-06-22] MEDS: lidocaine-epi 2% 20 mL INJ INJECTION (07:48)
--- NOTE | 2022-06-22 08:00 | PM.OP ---
Operative Report Date of procedure: June 22, 2022 Pre-op diagnosis: Preop Diagnosis 8 week demise with retained products Post-op diagnosis: Same Procedure done: Uterine dilatation and curettage with suction Specimens removed/disposition: Products of conception Surgeon: Radhika Armendariz MD Anesthesia: General Estimated blood loss (mL): 1,500 IV fluids (mL): 700 Complications: brisk uterine bleeding Procedure: The patient was taken to the OR where general anesthesia was administered. She was prepped and draped in normal sterile fashion in dorsal lithotomy position. A weighted speculum was inserted into the vagina and the anterior cervix was grasped with a tenaculum. The uterus was sounded to 12 cm. Suction curettage was first performed with small pieces of tissue removed. The patient immediately started bleeding briskly from the cervix. 800 mcg of misoprostol was placed rectally. Several passes of alternating suction and manual curettage were performed. A piece of placental tissue was visible at the os and was grasped with a placental forcep and removed. Again alternating suction and manual curettage was performed until it was felt that the uterine lining was gritty and devoid of products of conception.
--- NOTE | 2022-06-22 08:10 | SUR.OPER ---
0757 Products of conception contained in a plastic container and sent with pt per patients request. Dr Armendariz agreed.
--- NOTE | 2022-06-22 09:42 | PC.NURSE ---
Products of conception released with Navid per patient request. House sup. notified. Vaginal bleeding minimal after oxytocin bolus complete. Pt VSS and denies pain or N/V.
--- NOTE | 2022-06-22 13:55 | ANE.PACU2 ---
Inpatient post-anesthesia follow up: Airway intact: Yes Vital signs: Temperature 97.3 F Pulse Rate 72 Respiratory Rate 18 Blood Pressure 106/63 Pulse Oximetry 96 Oxygen Delivery Me thod Room Air Oxygen Flow Rate 6 Fraction of Inspir ed Oxygen Hydration adequate: Yes Nausea and vomiting: No Pain level: 1 Mental status: Baseline
== END 2022-06-22 09:52 | disposition home or self-care (01) ==
PROVIDERS: PCP Family Medicine; Visit Provider Family Medicine
PROC: (CPT 59820; principal; 2022-06-22 07:00)
DX: O02.1 Missed abortion (principal); K21.9 Gastro-esophageal reflux disease without esophagitis; Z87.891 Personal history of nicotine dependence
CPT/HCPCS: 59820; J0131; J1100; J1200; J1885; J2250; J2405; J2590; J2704; J3010; J7030

== ENCOUNTER 2022-09-27 14:08 | Outpatient (RCR) | payer BC, MEDICAID, SELFPAY | END 2022-09-28 23:59 | disposition home or self-care (01) | LOC: SPT 14:08 | PROVIDERS: PCP Family Medicine; Visit Provider Family Medicine | DX: R32 Unspecified urinary incontinence (principal) | CPT/HCPCS: 97161 ==

== ENCOUNTER 2022-09-29 06:00 | Outpatient (RCR) | payer BC, MEDICAID, SELFPAY | END 2022-10-28 23:59 | disposition home or self-care (01) | LOC: SPT 06:00 | PROVIDERS: PCP Family Medicine; Visit Provider Family Medicine | DX: R32 Unspecified urinary incontinence (principal) | CPT/HCPCS: 97110; 97530 ==

== ENCOUNTER 2022-10-29 06:00 | Outpatient (RCR) | payer BC, MEDICAID, SELFPAY | END 2022-11-21 23:59 | disposition home or self-care (01) | LOC: SPT 06:00 | PROVIDERS: PCP Family Medicine; Visit Provider Family Medicine | DX: R32 Unspecified urinary incontinence (principal) | CPT/HCPCS: 97110; 97530 ==

== ENCOUNTER 2023-05-28 17:11 | Emergency (ER) | payer BC, SELFPAY ==
[2023-05-28 17:36] VITALS: BP 163/75; PULSE 132; RESP 24; TEMP 37.6; O2SAT 97; BMI 38.6
--- NOTE | 2023-05-28 17:48 | XRR_ITS ---
PROCEDURE INFORMATION: Exam: XR Chest Exam date and time: 05/28/2023 5:49 PM Age: 32 years old Clinical indication: Shortness of breath; Patient HX: Increased SOB; Congestion; Covid +; 33wks -pt shielded TECHNIQUE: Imaging protocol: Radiologic exam of the chest. Views: 1 view. COMPARISON: NM hepatobiliary w phar* [id number] 05/13/2020 10:00 AM FINDINGS: Lungs: Unremarkable. No consolidation. Pleural spaces: Unremarkable. No pleural effusion. No pneumothorax. Heart/Mediastinum: Unremarkable. No cardiomegaly. Bones/joints: Unremarkable. XR/XR chest 1V portable [id number] IMPRESSION: No acute findings.
--- NOTE | 2023-05-28 17:49 | ED_ITS ---
HPI - COVID 2 General: Chief Complaint: COVID symptoms Stated Complaint: COVID+ pulse got down to 91 33 weeks prg Time Seen by Provider: 05/28/23 17:46 History of Present Illness: Patient tested positive for COVID-19 yesterday. Patient was seen at urgent care and was prescribed Paxlovid. Patient was unable to get the Paxlovid due to insurance. Patient appears nontoxic. Patient reports feeling malaise. Patient is 33 weeks . Patient had talked to the obstetrics unit and they referred her to the ER for evaluation and treatment and medical clearance. COVID Results: 2 SARS-CoV-2 RNA (RT-PCR) Not detected (NOT DETECTED) 03/09/20 1 5:59 Nasal/Oral Coronavirus 2019 PCR Negative 04/02/20 09:24 SARS-CoV-2 (PCR) Not detected (NOT DETECT) 06/14/21 19:54 Coronavirus Type 229E (PCR) Not detected (NOT DETECT) 06/14/21 19:54 Review of Systems 2 General: Reports: 10 or more systems reviewed and unremarkable except in HPI and below PFSH ED 2 PFSH: Medical History GERD (gastroesophageal reflux disease) Herniated disc History of anemia No pertinent past medical history neghx: htn,dm,thyroid,dvt/pe PCP: Dr. Velazquez Umbilical hernia Surgical History H/O esophagogastroduodenoscopy (04/09/20) History of removal of cyst sebaceous cyst- on her cheek Family History Mother Breast cancer dx age 42-- stage 0; mastectomy no adjuvant therapy Grandmother Diabetes Paternal Heart disease Maternal Father Heart disease Hypertension Thyroid disease Denies family history of Colon cancer Ovarian cancer Uterine cancer Stroke Social History Smoking and tobacco/nicotine status: former use of tobacco/nicotine Substance/Drug Use: current Substance/Drug use frequency: Special occassions/opportunity only Other substance/drug use details: for anxiety Physical Exam 2 Const: COMMON NORMALS: alert HENMT: COMMON NORMALS: normocephalic HEAD & SCALP: normocephalic Neck/C-Spine: COMMON NORMALS: full ROM Resp: COMMON NORMALS: normal respiratory effort and clear to auscultation bilaterally AUSCULTATION: clear to auscultation bilaterally Cardio: COMMON NORMALS: regular rate RATE: regular rate Back/Pelvis: COMMON NORMALS: thoracic and lumbar spine normal to inspection Extremity: COMMON NORMALS: normal to inspection Neuro: SENSORIUM/ORIENTATION: Yes alert Skin: COMMON NORMALS: turgor normal GENERAL SKIN EXAM: turgor normal Course 2 Vital Signs: Vital signs: Vital Signs Temperature 99.7 F H 05/28/23 17:36 Pulse Rate 101 H 05/28/23 19:06 Respiratory Rate 24 H 05/28/23 17:36 Blood Pressure 148/75 05/28/23 19:06 Pulse Oximetry 96 05/28/23 19:06 Oxygen Delivery Me thod Room Air 05/28/23 19:06 MDM - COVID Medical Decision Making 32-year-old female comes in today for complaints of cough and fever. Lungs are clear to auscultation. Abdomen soft nontender. Skin is warm and dry. Vital signs are normal except for elevated pulse, respirations, and temperature. Differential diagnosis and COVID-19, viral syndrome, dehydration, pneumonia. Chest x-ray was normal. CBC and CMP was unremarkable except for some mild hyponatremia at 134. Patient was infused with 1 L of IV fluids. Patient was discharged home with instructions for follow-up or return to ER. Lab Data 05/28/23 18:04 05/28/23 18:04 Radiology Impressions Chest X-Ray 05/28/23 17:48 IMPRESSION: No acute findings. Laboratory Results WBC 7.42 10^3/uL (3.29-11.43) 05/28/23 18:04 RBC 3.83 10^6/uL (3.85-5.65) L 05/28/23 18:04 Hgb 12.10 g/dL (11.27-16.99) 05/28/23 18:04 Hct 36.0 % (36-47) 05/28/23 18:04 MCV 94.0 fl (85-98) 05/28/23 18:04 MCH 31.6 pg (27-33) 05/28/23 18:04 MCHC 33.6 g/dL (30-55) 05/28/23 18:04 RDW 12.8 % (12.1-15.1) 05/28/23 18:04 Plt Count 188 10^3/cmm (157-399) 05/28/23 18:04 MPV 8.8 fL (7.4-10.4) 05/28/23 18:04 Neut % (Auto) 91.5 % 05/28/23 18:04 Lymph % (Auto) 4.2 % 05/28/23 18:04 [place] % (Auto) 3.8 % 05/28/23 18:04 Eos % (Auto) 0.0 % 05/28/23 18:04 Baso % (Auto) 0.1 % 05/28/23 18:04 Neut # (Auto) 6.79 10^3/uL (1.8-7.7) 05/28/23 18:04 Lymph # (Auto) 0.3 10^3/uL (0.8-4.8) L 05/28/23 18:04 [place] # (Auto) 0.3 10^3/uL (0.2-0.9) 05/28/23 18:04 Eos # (Auto) 0.0 10^3/uL (0.0-0.8) 05/28/23 18:04 Baso # (Auto) 0.0 10^3/uL (0.0-0.1) 05/28/23 18:04 Nucleated RBC % (auto) 0 % 05/28/23 18:04 Nucleated RBCs # 0.0 /100WBC 05/28/23 18:04 Sodium 134 mmol/L (136-145) L 05/28/23 18:04 Potassium 4.2 mmol/L (3.5-5.1) 05/28/23 18:04 Chloride 99 mmol/L (98-107) 05/28/23 18:04 Carbon Dioxide 23 mmol/L (22-29) 05/28/23 18:04 Anion Gap 16.2 (5-19) 05/28/23 18:04 BUN 5 mg/dL (6-20) L 05/28/23 18:04 Creatinine 0.6 mg/dL (0.5-0.9) 05/28/23 18:04 GFR Calculation 114.4 mL/min (90-130) 05/28/23 18:04 Glucose 93 mg/dL (65-115) 05/28/23 18:04 Calculated Osmolality 275 mOsm/kg (285-295) L 05/28/23 18:04 Calcium 8.8 mg/dL (8.5-10.5) 05/28/23 18:04 Total Bilirubin 0.3 mg/dL (0.15-1.2) 05/28/23 18:04 AST 22 U/L (0-32) 05/28/23 18:04 ALT 11 U/L (0-33) 05/28/23 18:04 Alkaline Phosphatase 99 U/L (35-105) 05/28/23 18:04 Total Protein 7.1 g/dL (6.6-8.7) 05/28/23 18:04 Albumin 3.8 g/dL (3.5-5.2) 05/28/23 18:04 Globulin 3.3 g/dL (1.3-4.6) 05/28/23 18:04 2 SARS-CoV-2 RNA (RT-PCR) Not detected (NOT DETECTED) 03/09/20 1 5:59 Nasal/Oral Coronavirus 2019 PCR Negative 04/02/20 09:24 SARS-CoV-2 (PCR) Not detected (NOT DETECT) 06/14/21 19:54 Coronavirus Type 229E (PCR) Not detected (NOT DETECT) 06/14/21 19:54 All radiology interpretation(s) finalized by discharge Discharge Plan Discharge Patient Disposition: Home Clinical Impression: COVID-19 Condition: Stable Prescriptions: No Action buspirone 5 mg tablet 5 mg PO TID PRN (Reason: anxiety) Qty: 90 0RF d-mannose 500 mg capsule 500 mg PO DAILY PRN (Reason: uti) famotidine 20 mg tablet 20 mg PO .ONCE A DAY 90 Days Qty: 90 1RF Rx Instructions: Please disregard prior rx prenat.vits,joellen,[id number] Tablet 1 tab PO DAILY citalopram 10 mg tablet See Rx Instructions .ROUTE .COMPLEX Qty: 30 0RF Dose Instruction: TAKE 1 TABLET BY MOUTH EVERY DAY Rx Instructions: TAKE 1 TABLET BY MOUTH EVERY DAY Discharge Orders: Discharge ED (Routine); Ordered 05/28/23 Ordered By: Jose Barron Referrals: Radhika Armendariz MD [Primary Care Provider] - Discharge Diet: Usual diet Discharge Activity: Increase activity as tolerated Patient Instructions: COVID-19 (Coronavirus Disease 2019) (ED) Activity Restrictions/Additional Instructions: Drink plenty of water and fluids. Is very important during your illness to stay well-hydrated. Often complications occur because of poor hydration. Use acetaminophen as needed for pain and fever. Follow-up with primary care as needed. Talk with your DENTAL LABORATORY WORKER regarding your and COVID-19. Return to ED for new concerns. Coding Level of Care Code ED Extension Division Director for Meghann Bacon
[2023-05-28 18:08] LABS: Basophils % 0.1 %; Lymphocytes # 0.3 10^3/uL (0.8-4.8); Lymphocytes % 4.2 %; Mean Corpuscular HGB Conc 33.6 g/dL (30-55); Mean Corpuscular Hemoglobin 31.6 pg (27-33); Mean Platelet Volume 8.8 fL (7.4-10.4); Monocytes # 0.3 10^3/uL (0.2-0.9); Monocytes % 3.8 %; Neutrophils # 6.79 10^3/uL (1.8-7.7); Neutrophils % 91.5 %; Nucleated Red Blood Cells % 0 %; Platelet Count 188 10^3/cmm (157-399); Red Blood Count 3.83 10^6/uL (3.85-5.65); Red Cell Distribution Width 12.8 % (12.1-15.1); White Blood Count 7.42 10^3/uL (3.29-11.43)
[2023-05-28 18:11] VITALS: O2SAT 95
[2023-05-28 18:27] LABS: Alanine Aminotransferase 11 U/L (0-33); Albumin Level 3.8 g/dL (3.5-5.2); Alkaline Phosphatase 99 U/L (35-105); Anion Gap 16.2 (5-19); Aspartate Amino Transferase 22 U/L (0-32); Blood Urea Nitrogen 5 mg/dL (6-20); Calcium 8.8 mg/dL (8.5-10.5); Carbon Dioxide 23 mmol/L (22-29); Chloride 99 mmol/L (98-107); Globulin 3.3 g/dL (1.3-4.6); Glomerular Filtration Rate 114.4 mL/min (90-130); Glucose 93 mg/dL (65-115); Osmolality Calculated 275 mOsm/kg (285-295); Potassium 4.2 mmol/L (3.5-5.1); Sodium 134 mmol/L (136-145); Total Bilirubin 0.3 mg/dL (0.15-1.2); Total Protein 7.1 g/dL (6.6-8.7)
[2023-05-28] MEDS: sodium chloride 0.9% 1,000 ML 999 ML IV (18:33)
--- NOTE | 2023-05-28 18:47 | PC.NURSE ---
program writer assumed care of pt at 1847, report from everett dow
[2023-05-28 19:06] VITALS: BP 148/75; PULSE 101; O2SAT 96
== END 2023-05-28 19:57 | disposition home or self-care (01) ==
PROVIDERS: Emergency Provider Nurse Practitioner Family; PCP Family Medicine
DX: O98.513 Other viral diseases complicating pregnancy, third trimester (principal); U07.1 COVID-19; Z3A.33 33 weeks gestation of pregnancy; Z87.891 Personal history of nicotine dependence
CPT/HCPCS: 36415; 71045; 80053; 85025; 96360; 99284; J7030

== ENCOUNTER 2023-06-11 09:23 | Emergency (ER) | payer BC, MEDICAID, SELFPAY ==
[2023-06-11 09:36] VITALS: BP 155/99; PULSE 81; RESP 14; TEMP 36.3; O2SAT 97; BMI 38.6
[2023-06-11 11:33] LABS: D Dimer 0.82 ug/mLFEU (0-0.59)
--- NOTE | 2023-06-11 11:48 | USR_ITS ---
PROCEDURE INFORMATION: Exam: US Duplex Left Upper Extremity Veins, Limited Exam date and time: 06/11/2023 12:31 PM Age: 32 years old Clinical indication: Pain; Arm, upper; Left; Additional info: Pain, swelling TECHNIQUE: Imaging protocol: Real-time duplex ultrasound of the left extremity with 2-D mack scale, color Doppler flow and spectral waveform analysis including responses to compression and other maneuvers (when performed) with image documentation. Limited exam focused on the left upper extremity veins. COMPARISON: No relevant prior studies available. FINDINGS: Left deep veins: Unremarkable. Axillary and brachial veins are patent throughout without thrombus. Normal Doppler waveforms. Normal compressibility and/or augmentation response. Visualized internal jugular and subclavian veins are patent. Superficial veins: Unremarkable. Visualized cephalic and basilic veins are patent without thrombus. Soft tissues: Unremarkable. US/[place] [id number] IMPRESSION: No evidence of deep vein thrombosis.
--- NOTE | 2023-06-11 14:03 | W.ED.EXTPRO ---
HPI - Extremity Problem General: Chief complaint: Extremity Injury, Upper Stated complaint: left arm pain Time Seen by Provider: 06/11/23 10:03 History of Present Illness: This patient is a 32-year-old white female who presents to the emergency department with a dull ache and a bruise over her left upper inner arm. She noticed this about a week ago. Patient states she is just getting over COVID. She is concerned she may have a blood clot in the arm. She has not had a fever. No chest pain or shortness of breath. Review of Systems General: Reports: 10 or more systems reviewed and unremarkable except in HPI and below PFSH ED PFSH: Medical History No pertinent past medical history neghx: htn,dm,thyroid,dvt/pe PCP: Dr. Velazquez Umbilical hernia GERD (gastroesophageal reflux disease) Herniated disc History of anemia Surgical History H/O esophagogastroduodenoscopy (04/09/20) History of removal of cyst sebaceous cyst- on her cheek Family History Mother Breast cancer dx age 42-- stage 0; mastectomy no adjuvant therapy Grandmother Diabetes Paternal Heart disease Maternal Father Heart disease Hypertension Thyroid disease Denies family history of Colon cancer Ovarian cancer Uterine cancer Stroke Social History Smoking and tobacco/nicotine status: former use of tobacco/nicotine Substance/Drug Use: current Substance/Drug use frequency: Special occassions/opportunity only Other substance/drug use details: for anxiety Physical Exam Const: COMMON NORMALS: no acute distress, patient oriented x3 and no limitations GENERAL APPEARANCE: cooperative and comfortable HENMT: COMMON NORMALS: normocephalic, atraumatic, Normal nasal mucous membranes and turbinates present, moist oral mucous membranes and oropharynx normal HEAD & SCALP: normal to inspection, normocephalic and atraumatic FACE & SINUS: normal facial exam NOSE: Normal nasal mucous membranes and turbinates present Eye: COMMON NORMALS: Equal, round and reactive pupils present, EOMs intact bilaterally and conjunctivae normal GENERAL EYE: appearance normal, both eyes and all related structures CONJUNCTIVA: Yes conjunctivae normal PUPIL: Yes Equal, round and reactive pupils present Neck/C-Spine: COMMON NORMALS: supple and no JVD Chest: COMMONS NORMALS: normal inspection of the chest Resp: COMMON NORMALS: normal respiratory effort and clear to auscultation bilaterally AUSCULTATION: clear to auscultation bilaterally Cardio: COMMON NORMALS: no JVD, regular rate, regular rhythm, No gallops present (Cardio), No murmurs present (Cardio) and No rub (Cardio) RATE: regular rate RHYTHM: regular rhythm GI: COMMON NORMALS: Normal to inspection, nondistended, normoactive bowel sounds present, Soft to palpation and non-tender AUSCULTATION: Yes normoactive bowel sounds PALPATION: Yes Soft to palpation : COMMON NORMALS: Yes no CVA tenderness BLADDER/KIDNEY EXAM: Yes no CVA tenderness Back/Pelvis: COMMON NORMALS: no CVA tenderness and thoracic and lumbar spine normal to inspection Extremity: NARRATIVE EXTREMITY EXAM: Some mild ecchymosis in the left upper inner arm. Mild tenderness to palpation. Normal neurovascular exam left upper extremity. Neuro: COMMON NORMALS: patient oriented x3 and CN's II-XII intact bilaterally Psych: COMMON NORMALS: mental status grossly normal, Normal thought process present and cooperative THOUGHT PROCESS: Normal thought process present Skin: COMMON NORMALS: no rashes or lesions noted, turgor normal and no jaundice GENERAL SKIN EXAM: no rashes or lesions noted and turgor normal Course Vital Signs: Vital signs: Vital Signs Temperature 97.4 F L 06/11/23 09:36 Pulse Rate 81 06/11/23 09:36 Respiratory Rate 14 06/11/23 09:36 Blood Pressure 155/99 06/11/23 09:36 Pulse Oximetry 97 06/11/23 09:36 Oxygen Delivery Me thod Room Air 06/11/23 09:36 MDM - Extremity (Nontraumatic) Medical Decision Making D-dimer was slightly elevated at 0.82. Venous duplex scan of the left upper extremity was read by the radiologist as negative for DVT. Patient was reassured. Recommended she follow-up with her primary care physician for recheck in 1 week if this is not resolved. Lab Data Radiology Impressions Venous Duplex 06/11/23 11:48 IMPRESSION: No evidence of deep vein thrombosis. Laboratory Results D-Dimer 0.82 ug/mLFEU (0-0.59) H 06/11/23 11:15 All radiology interpretation(s) finalized by discharge Discharge Plan Discharge Patient Disposition: Home Clinical Impression: Contusion of arm, left Qualifiers: Encounter type: initial encounter Qualified Code(s): S40.022A - Contusion of left upper arm, initial encounter Condition: Stable Prescriptions: No Action buspirone 5 mg tablet 5 mg PO TID PRN (Reason: anxiety) Qty: 90 0RF d-mannose 500 mg capsule 500 mg PO DAILY PRN (Reason: uti) Multivitamins 28 mg iron- 800 mcg Tablet 3 tab PO BEDTIME citalopram 10 mg tablet 10 mg PO BEDTIME Discharge Orders: Discharge ED (Routine); Ordered 06/11/23 Ordered By: Emil Romano Referrals: Radhika Armendariz MD [Primary Care Provider] - Coding Level of Care Code ED Tissue Recovery Technician for Meghann Bacon
== END 2023-06-11 13:19 | disposition home or self-care (01) ==
PROVIDERS: Emergency Provider Emergency Medicine; PCP Family Medicine
DX: S40.022A Contusion of left upper arm, initial encounter (principal); Z87.891 Personal history of nicotine dependence; X58.XXXA Exposure to other specified factors, initial encounter
CPT/HCPCS: 36415; 85378; 93971; 99284

== ENCOUNTER 2023-06-21 10:49 | Outpatient (CLI) | payer BC, MEDICAID, SELFPAY ==
[2023-06-21 11:00] VITALS: BMI 39.0
[2023-06-21 11:05] VITALS: BP 140/81; PULSE 95
[2023-06-21 11:20] VITALS: BP 125/75; PULSE 89
[2023-06-21 11:35] VITALS: BP 123/68; PULSE 77
[2023-06-21 11:50] VITALS: BP 123/68; PULSE 77
== END 2023-06-21 11:50 | disposition home or self-care (01) ==
LOC: OPOB 10:52 → OBGYN 10:55
PROVIDERS: PCP Family Medicine; Visit Provider Family Medicine
DX: O16.9 Unspecified maternal hypertension, unspecified trimester (principal); Z3A.00 Weeks of gestation of pregnancy not specified
CPT/HCPCS: 59025; 99211

== ENCOUNTER 2023-06-24 10:00 | Outpatient (CLI) | payer BC, MEDICAID, SELFPAY ==
[2023-06-24 10:14] VITALS: BP 131/82; PULSE 115
[2023-06-24 10:16] VITALS: RESP 16; BMI 39.0
[2023-06-24 10:35] VITALS: BP 142/72; PULSE 98
[2023-06-24 10:44] VITALS: BP 142/72; PULSE 98
== END 2023-06-24 10:47 ==
LOC: OPOB 10:03 → OBGYN 10:04
PROVIDERS: PCP Family Medicine; Visit Provider Family Medicine
DX: O13.9 Gestational [pregnancy-induced] hypertension without significant proteinuria, unspecified trimester (principal); Z3A.00 Weeks of gestation of pregnancy not specified
CPT/HCPCS: 59025

== ENCOUNTER 2023-06-28 10:38 | Outpatient (CLI) | payer BC, SELFPAY ==
[2023-06-28 10:35] VITALS: BMI 39.7
[2023-06-28 10:45] VITALS: BP 125/78; PULSE 112
[2023-06-28 11:05] VITALS: BP 120/74; PULSE 86
[2023-06-28 12:14] VITALS: BP 120/74; PULSE 86
== END 2023-06-28 11:10 | disposition home or self-care (01) ==
LOC: OPOB 10:38 → OBGYN 10:39
PROVIDERS: PCP Family Medicine; Visit Provider Family Medicine
DX: O16.9 Unspecified maternal hypertension, unspecified trimester (principal); Z3A.00 Weeks of gestation of pregnancy not specified
CPT/HCPCS: 59025; 99211

== ENCOUNTER 2023-07-02 09:56 | Outpatient (CLI) | payer BC, SELFPAY ==
[2023-07-02 10:07] VITALS: BP 123/78; PULSE 113
[2023-07-02 10:17] VITALS: RESP 16; BMI 39.0
[2023-07-02 10:31] VITALS: BP 142/86; PULSE 90
[2023-07-02 10:32] VITALS: BP 142/82; PULSE 85
[2023-07-02 10:36] VITALS: BP 142/82; PULSE 85
== END 2023-07-02 10:37 ==
LOC: OPOB 10:02 → OBGYN 10:03
PROVIDERS: PCP Family Medicine; Visit Provider Family Medicine
DX: O24.419 Gestational diabetes mellitus in pregnancy, unspecified control (principal); Z3A.00 Weeks of gestation of pregnancy not specified
CPT/HCPCS: 59025

== ENCOUNTER 2023-07-05 09:40 | Outpatient (CLI) | payer BC, SELFPAY ==
[2023-07-05 09:40] VITALS: RESP 17; BMI 39.0
[2023-07-05 09:49] VITALS: BP 131/82; PULSE 137
[2023-07-05 10:04] VITALS: BP 108/64; PULSE 79
[2023-07-05 10:19] VITALS: BP 119/73; PULSE 87
== END 2023-07-05 10:30 | disposition home or self-care (01) ==
LOC: OPOB 09:42 → OBGYN 09:42
PROVIDERS: PCP Family Medicine; Visit Provider Family Medicine
DX: O16.9 Unspecified maternal hypertension, unspecified trimester (principal); Z3A.00 Weeks of gestation of pregnancy not specified
CPT/HCPCS: 59025; 99211

== ENCOUNTER 2023-07-05 11:25 | Outpatient (CLI) | payer BC, SELFPAY ==
[2023-07-05 11:25] VITALS: BMI 39.0
[2023-07-05 11:48] VITALS: RESP 17
[2023-07-05 11:58] LABS: Basophils % 0.3 %; Eosinophils # 0.1 10^3/uL (0.0-0.8); Hematocrit 36.6 % (36-47); Lymphocytes # 1.6 10^3/uL (0.8-4.8); Lymphocytes % 20.8 %; Mean Corpuscular HGB Conc 33.6 g/dL (30-55); Mean Corpuscular Hemoglobin 31.4 pg (27-33); Mean Corpuscular Volume 93.4 fl (85-98); Mean Platelet Volume 9.7 fL (7.4-10.4); Monocytes # 0.7 10^3/uL (0.2-0.9); Monocytes % 8.7 %; Neutrophils # 5.39 10^3/uL (1.8-7.7); Neutrophils % 68.8 %; Nucleated Red Blood Cells % 0 %; Platelet Count 245 10^3/cmm (157-399); Red Blood Count 3.92 10^6/uL (3.85-5.65); Red Cell Distribution Width 13.5 % (12.1-15.1); White Blood Count 7.83 10^3/uL (3.29-11.43)
[2023-07-05 12:14] LABS: Alanine Aminotransferase 9 U/L (0-33); Albumin Level 3.7 g/dL (3.5-5.2); Alkaline Phosphatase 102 U/L (35-105); Anion Gap 16.3 (5-19); Aspartate Amino Transferase 12 U/L (0-32); Blood Urea Nitrogen 9 mg/dL (6-20); Calcium 8.8 mg/dL (8.5-10.5); Carbon Dioxide 20 mmol/L (22-29); Chloride 102 mmol/L (98-107); Globulin 3.1 g/dL (1.3-4.6); Glomerular Filtration Rate 141.2 mL/min (90-130); Glucose 92 mg/dL (65-115); Osmolality Calculated 276 mOsm/kg (285-295); Potassium 4.3 mmol/L (3.5-5.1); Sodium 134 mmol/L (136-145); Total Bilirubin 0.2 mg/dL (0.15-1.2); Total Protein 6.8 g/dL (6.6-8.7); Uric Acid 4.4 mg/dL (2.4-5.7)
[2023-07-05 12:26] LABS: Urine Appearance Hazy (CLEAR); Urine Color Yellow (Yellow); pH Urine 7 (5-7)
[2023-07-05 12:27] LABS: Add Urine Microscopic? YES; Bilirubin Urine Neg (Negative); Blood Urine Neg (Negative); Glucose Urine UA Norm (Normal); Ketones Urine 1+ (Negative); Leukocyte Esterase Urine Trace (Negative); Nitrate Urine Negative (Negative); Protein Urine Trace (Negative); Urobilinogen Urine 1 mg/dL (Negative)
[2023-07-05 12:31] LABS: Add Urine Culture? No; Bacteria Urine TRACE /hpf; Mucus Urine 2+ /hpf; RBC Urine 0-4 /hpf (0-2); WBC Urine 0-4 /hpf (0-5)
[2023-07-05 12:34] LABS: Urine Creatinine 263 mg/dL (28-217)
[2023-07-05 12:40] LABS: UPRO/UCREAT Ratio 0.12 mg/mg CR; Urine Protein Random 31 mg/dL
== END 2023-07-05 12:05 | disposition home or self-care (01) ==
LOC: OPOB 11:33 → OBGYN 11:34
PROVIDERS: PCP Family Medicine; Visit Provider Family Medicine
DX: O26.899 Other specified pregnancy related conditions, unspecified trimester (principal); Z3A.00 Weeks of gestation of pregnancy not specified
CPT/HCPCS: 36415; 80053; 81001; 82570; 84156; 84550; 85025; 99211

== ENCOUNTER 2023-07-08 16:56 | Inpatient (IN) | payer BC, SELFPAY ==
[2023-07-08] VITALS (22 sets, daily range): BP systolic 112–155; BP diastolic 57–85; PULSE 61–107; BMI 39.0
--- NOTE | 2023-07-08 18:01 | ANES.PREANE2 ---
Pre-Anesthetic Assessment Height/Weight: Height 1.8 m Pulse BP 107 H 132/85 07/08/23 17:07 07/08/23 17:07 Epidural Familial anesthetic complications: Epidural previously was one-sided Social No alcohol and No tobacco Exam alert, oriented x 3, clear to auscultation bilaterally and regular rate & rhythm Airway Mallampati: Class II Dentition: full Anesthetic Plan ASA status: 2 Anesthesia: Regional (specify below) Risk of > 500 ml blood loss (7ml/kg in children): Yes, adequate IV access and fluids planned Medications/Allergies Home Medications Medication Instructions Recorded Confirmed Last Taken Type citalopram 10 mg tablet 10 mg PO BEDTIME 06/11/23 07/05/23 07/01/23 21:00 History vit no.95-ferrous 3 tab PO BEDTIME 06/11/23 07/05/23 07/01/23 21:00 History fumarate 28 mg-folic acid 800 mcg tablet ( Multivitamins) Allergies Allergy/AdvReac Type Severity Reaction Status Date / Time Penicillins Allergy Mild rash Verified 07/05/23 11:15 [facility] Allergy rash Uncoded 06/22/22 06:22 [facility] Anesthesia Medical History No pertinent past medical history neghx: htn,dm,thyroid,dvt/pe PCP: Dr. Velazquez Umbilical hernia GERD (gastroesophageal reflux disease) Herniated disc History of anemia Surgical History H/O esophagogastroduodenoscopy (04/09/20) History of removal of cyst sebaceous cyst- on her cheek Family History Mother Breast cancer dx age 42-- stage 0; mastectomy no adjuvant therapy Grandmother Diabetes Paternal Heart disease Maternal Father Heart disease Hypertension Thyroid disease Denies family history of Colon cancer Ovarian cancer Uterine cancer Stroke Social History Smoking and tobacco/nicotine status: former use of tobacco/nicotine Substance/Drug Use: current Substance/Drug use frequency: Special occassions/opportunity only Other substance/drug use details: for anxiety Data Anesthesia Cardiac Studies: No Data to Display
[2023-07-08 18:56] LABS: Basophils % 0.2 %; Eosinophils # 0.1 10^3/uL (0.0-0.8); Eosinophils % 1.2 %; Hematocrit 35.1 % (36-47); Lymphocytes # 1.9 10^3/uL (0.8-4.8); Mean Corpuscular Hemoglobin 31.3 pg (27-33); Mean Corpuscular Volume 94.6 fl (85-98); Mean Platelet Volume 10.2 fL (7.4-10.4); Monocytes # 0.7 10^3/uL (0.2-0.9); Monocytes % 8.2 %; Neutrophils # 5.53 10^3/uL (1.8-7.7); Neutrophils % 66.9 %; Nucleated Red Blood Cells % 0 %; Platelet Count 250 10^3/cmm (157-399); Red Blood Count 3.71 10^6/uL (3.85-5.65); Red Cell Distribution Width 13.3 % (12.1-15.1); White Blood Count 8.27 10^3/uL (3.29-11.43)
[2023-07-08] MEDS: dextrose 5%-lactated ringers 1,000 ML 125 ML IV (19:31)
[2023-07-08] MEDS: oxytocin 30 UNIT/500 ML BAG IV (19:32)
[2023-07-09] VITALS (99 sets, daily range): BP systolic 88–177; BP diastolic 49–98; PULSE 54–100; RESP 15; TEMP 35.9; O2SAT 100; BMI 39.0
[2023-07-09] MEDS: dextrose 5%-lactated ringers 1,000 ML 125 ML IV ×2 (04:11→12:58)
--- NOTE | 2023-07-09 11:13 | PM.OPHPUD ---
Labor & Delivery H&P Update Date of Procedure: July 08, 2023 Date H&P Performed: 06/20/22 Admission Diagnosis: IUP at 38 weeks 6 days gestation -induced hypertension Primary indication for procedure: This is a 32-year-old G3, P1 at 38 weeks 6 days gestation who was brought in for induction secondary to worsening -induced hypertension. The patient was receiving twice weekly NSTs where her blood pressures were mostly within normal limits or only mildly elevated. However the patient had at least 4 episodes in the past week where she was not feeling well at all. She would lay down and rest, check her blood pressure and it would be 150s to 165 but would improve over 30 minutes to 4 hours. Decision was made to proceed with induction secondary to more than 2 severe blood pressures greater than 4 hours apart.
[2023-07-09] MEDS: calcium carbonate 500 mg Chew Tablet 1000 MG PO (11:40)
--- NOTE | 2023-07-09 14:43 | ANES.PAUD2 ---
Pre-Anesthetic Update Pre-Anesthetic Assessment: Date of Surgery/Procedure: 07/09/23 Proposed Procedure: Epidural Any changes to Pre-Anesthetic Assessment?: No Labs Last 48hrs: Short CBC 07/08/23 Range/Units 18:40 WBC 8.27 (3.29-11.43) 10^ 3/uL Hgb 11.60 (11.27-16.99) g/ dL Hct 35.1 L (36-47) % MCV 94.6 (85-98) fl Plt Count 250 (157-399) 10^3/c mm Neut % (Auto) 66.9 % Neut # (Auto) 5.53 (1.8-7.7) 10^3/u L Blood Bank 07/08/23 18:40 Blood Type O Positive Rho(D) Type Rh positive Antibody Screen Negative Vitals: Pulse Rate 70 07/09/23 14:40 Pulse Rhythm Regular 07/08/23 19:00 Pulse Strength 3+ Normal 07/08/23 19:00 Respiratory Effort Spontaneous, Non- Labored, Easy 07/08/23 19:00 Respiratory Depth Normal 07/08/23 19:00 Respiratory Patter n Normal 07/08/23 19:00 Blood Pressure 177/92 07/09/23 14:40 Oxygen Delivery Me thod Room Air 07/08/23 22:14 Cardiac Studies: No Data to Display
[2023-07-09] MEDS: lactated ringers 1,000 ML 999 ML IV (15:00)
[2023-07-09] MEDS: ROPivacaine syringe 100 MG/50 ML SYRINGE 10 MG EPIDURAL (15:00)
--- NOTE | 2023-07-09 15:34 | P.ANES_ITS ---
Anesthesia Procedures Procedure/Date: 07/09/23 Epidural: Time Out Performed: Yes Consents Signed: Procedure Consent and NPO Consent Consent: requested by attending/covering physician, from patient, risks and benefits reviewed and patient agrees to proceed Lumbar Level: L3-L4 Epidural position: sitting Epidural procedure: sterile prep of area (betadine), 1% lidocaine to numb the area (3 mLs), neg for paresthesia, test dose given, 1.5% xylocaine 1:200k epi (3 mLs/ 2 mLs), 0.2% Ropivacaine bolus ml (5 mLs), placed PCEA, no systemic response, sterile dressing applied, L.U.D. no apparent complications and 0.2% Ropiavacaine @ mls/hr (13) Additional Comments: RIGO 6cm, catheter threaded to 12 cm. 100 mcg fentanyl given via epidural 1630: Pt experiencing dizziness and ligh theadedness d/t low BP. Epidural pump decreased to 10mL/hr and fluid bolus given. Pt states she feels better and BP has improved. Will continue to monitor.
[2023-07-09] MEDS: ROPivacaine syringe 100 MG/50 ML SYRINGE 7 MG EPIDURAL (19:28)
[2023-07-09] MEDS: oxytocin 30 UNIT/500 ML BAG 600 UNIT IV (20:01)
--- NOTE | 2023-07-09 20:23 | P.PCNOB_ITS ---
Delivery Note: Date of delivery: July 09, 2023 Procedure: Normal spontaneous vaginal delivery Estimated blood loss (mL): 100 Pre-Delivery Course: The patient had routine care at [facility]. Her was complicated by -induced hypertension and a history of preeclampsia. She exhibited -induced hypertension with mildly elevated blood pr essures interspersed with normal blood pressures. She was receiving twice weekly NSTs starting at 36 weeks gestation. She did not require any antihypertensive medication and it was not until the past few days that she began having spikes of blood pressure into the severe range. At that point decision was made to proceed with induction. labs: Blood type O+, antibody negative, hepatitis B nonreactive, hepatitis C nonreactive, HIV nonreactive, rubella immune, GC chlamydia negative, RPR nonreactive, UDS positive for marijuana, she passed her glucose tolerance test, she was GBS negative. Delivery: This is a 32-year-old G3, P1 at 39 weeks 0 days gestation who was admitted for induction secondary to worsening -induced hypertension. The patient was started on high-dose Pitocin. Strangely overnight the patient went from experiencing regular painful contractions where she was almost going to get an epidural to not having any contractions on 17 of Pitocin. At that point the Pitocin was stopped she was allowed to walk shower and have breakfast. She had made some cervical change on her own and when she was 1 and 58 she underwent artificial rupture membranes with clear fluid. The patient was restarted on Pitocin. She received an epidural for pain management. She had a normal spontaneous vaginal delivery of a viable female weight 3265 g, 7 pounds 3 ounces, Apgars 6 and 9 over an intact perineum. The infant was suctioned at delivery and placed on the mother's chest. The cord was clamped a nd cut. Cord blood was obtained. The placenta was delivered grossly intact and normal to inspection. There was an edematous piece of the hymen that was hanging on by a thread so I snipped this off and sutured the bleeding area using 3-0 chromic. I would consider this a first-degree laceration. Mother and infant were doing well after delivery. Estimated blood loss 100 mL History History History 1 Term Miscarriages/Ectopic Living Children Coding Level of Care Code Acute Code for Chg Fwd
[2023-07-09] MEDS: ibuprofen 800 mg tablet PO (21:19)
[2023-07-09] MEDS: citalopram 20 mg Tablet 10 MG PO (21:19)
[2023-07-09] MEDS: benzocaine-menthol 78 gm Canister 1 SPRAY TOPICAL (23:20)
[2023-07-09] MEDS: lanolin oint 7 gm 1 APPLIC TOPICAL (23:21)
[2023-07-10] VITALS (8 sets, daily range): BP systolic 124–155; BP diastolic 70–92; PULSE 60–74; RESP 15–18; TEMP 36.6–36.7; O2SAT 97–100
[2023-07-10] MEDS: prenatal vitamin Capsule 1 CAP PO (09:12)
[2023-07-10] MEDS: docusate sodium 100 mg Capsule PO ×2 (09:12→21:13)
[2023-07-10] MEDS: ibuprofen 800 mg tablet PO ×3 (09:12→21:13)
[2023-07-10 09:44] LABS: Hematocrit 33.5 % (36-47); Mean Corpuscular HGB Conc 32.2 g/dL (30-55); Mean Corpuscular Hemoglobin 30.7 pg (27-33); Mean Corpuscular Volume 95.2 fl (85-98); Mean Platelet Volume 9.8 fL (7.4-10.4); Platelet Count 197 10^3/cmm (157-399); Red Blood Count 3.52 10^6/uL (3.85-5.65); Red Cell Distribution Width 13.5 % (12.1-15.1); White Blood Count 8.21 10^3/uL (3.29-11.43)
--- NOTE | 2023-07-10 10:39 | P.DS_ITS ---
Discharge Providers Date of Admission: 07/08/23 16:56 Date of Discharge: July 10, 2023 Attending Provider at Admission: Radhika Armendariz MD Attending Provider at Discharge: Radhika Armendariz MD Primary Care Provider: Radhika Armendariz MD Reason for Visit Reason for Visit: IOL Hospital Course Hospital Course This is a 32-year-old G3 now P2 who was admitted for induction secondary to -induced hypertension. She had a normal spontaneous vaginal delivery of a viable female . Mother and have been doing well after delivery. Mother is ambulating, tolerating a regular diet, has decreased vaginal bleeding. She has had some mildly elevated blood pressures in the 150s over 90s but nothing in the severe range. She is not currently on any antihypertensives and we will continue to hold these and monitor her pressures outpatient. Physical Exam Narrative: Alert and oriented, walking around the room, heart regular rate and rhythm, lungs clear to auscultation bilaterally, abdomen is soft and nontender, fundus i s firm, extremities have 2+ edema but no calf tenderness Urinary Catheter Management: Bales: Cath Placed During This Visit: yes Reason for Continuing Indwelling Catheter: Required Immobilization for Trauma or Surgery or Anesthesia Urinary Catheter Date of Insertion: 07/09/23 Urinary Catheter Time of Insertion: 14:15 Discharge Data Studies Completed and Pending Laboratory Results WBC 8.21 10^3/uL (3.29-11.43) 07/10/23 09:18 RBC 3.52 10^6/uL (3.85-5.65) L 07/10/23 09:18 Hgb 10.80 g/dL (11.27-16.99) L 07/10/23 09:18 Hct 33.5 % (36-47) L 07/10/23 09:18 MCV 95.2 fl (85-98) 07/10/23 09:18 MCH 30.7 pg (27-33) 07/10/23 09:18 MCHC 32.2 g/dL (30-55) 07/10/23 09:18 RDW 13.5 % (12.1-15.1) 07/10/23 09:18 Plt Count 197 10^3/cmm (157-399) 07/10/23 09:18 MPV 9.8 fL (7.4-10.4) 07/10/23 09:18 Neut % (Auto) 66.9 % 07/08/23 18:40 Lymph % (Auto) 23.0 % 07/08/23 18:40 [place] % (Auto) 8.2 % 07/08/23 18:40 Eos % (Auto) 1.2 % 07/08/23 18:40 Baso % (Auto) 0.2 % 07/08/23 18:40 Neut # (Auto) 5.53 10^3/uL (1.8-7.7) 07/08/23 18:40 Lymph # (Auto) 1.9 10^3/uL (0.8-4.8) 07/08/23 18:40 [place] # (Auto) 0.7 10^3/uL (0.2-0.9) 07/08/23 18:40 Eos # (Auto) 0.1 10^3/uL (0.0-0.8) 07/08/23 18:40 Baso # (Auto) 0.0 10^3/uL (0.0-0.1) 07/08/23 18:40 Nucleated RBC % (auto) 0 % 07/08/23 18:40 Nucleated RBCs # 0.0 /100WBC 07/08/23 18:40 Blood Type O Positive 07/08/23 18:40 Rho(D) Type Rh positive 07/08/23 18:40 Antibody Screen Negative 07/08/23 18:40 Vitals Last Vital Signs Temp 98.0 F 07/10/23 05:45 Pulse 68 07/10/23 05:45 Resp 15 07/10/23 00:45 BP 126/74 07/10/23 05:45 Pulse Ox 100 07/10/23 05:45 O2 Del Method Room Air 07/10/23 05:45 Discharge Plan Discharge Patient Disposition: Home Condition: Stable Prescriptions: Continued PNV cmb#95-ferrous fumarate-FA [ Multivitamins] 28 mg iron- 800 mcg Tablet 3 tab PO BEDTIME citalopram 10 mg tablet 10 mg PO BEDTIME Discharge Orders: Discharge Order (Routine); Ordered 07/11/23 Ordered By: Radhika Armendariz Referrals: Radhika Armendariz MD [Primary Care Provider] - 08/07/23 1:00 pm (Your appointment with Dr. Armendariz is scheduled for Monday the @1:00pm. ) Discharge Diet: Usual diet Discharge Activity: Limit activity as instructed Patient Instructions: Depression (DC), Preeclampsia and Eclampsia After Delivery (GEN), Hemorrhage (DC), OB Discharge Report, OB Food/Drug Interaction Guide, Opioid Safety, OB Home Care, OB Vaginal Deliveries, Abnormal Bleeding Discharge Attestations Time Spent in Discharge Care*: less than 30 min Quality Metrics Clinical Quality Measures [ No reported AMI, CVA or VTE this stay] Coding Level of Care Code Acute Code for Chg Fwd
--- NOTE | 2023-07-10 14:36 | ANE.PACU2 ---
Inpatient post-anesthesia follow up: Airway intact: Yes Vital signs: Temperature 98.0 F Pulse Rate 68 Respiratory Rate 15 Blood Pressure 126/74 Pulse Oximetry 100 Oxygen Delivery Me thod Room Air Oxygen Flow Rate Fraction of Inspir ed Oxygen Hydration adequate: Yes Nausea and vomiting: No Pain level: 1 Mental status: Baseline Epidural Start/End: Epidural Start Date: 07/09/23 Epidural Start Time: 15:08 Epidural End Date: 07/09/23 Epidural End Time: 22:15
[2023-07-10] MEDS: citalopram 20 mg Tablet 10 MG PO (21:13)
[2023-07-11 04:00] VITALS: BP 135/80; PULSE 63; RESP 18; TEMP 36.6; TEMP 36.7; O2SAT 96
[2023-07-11] MEDS: ibuprofen 800 mg tablet PO (09:07)
[2023-07-11] MEDS: prenatal vitamin Capsule 1 CAP PO (09:07)
[2023-07-11] MEDS: docusate sodium 100 mg Capsule PO (09:07)
[2023-07-11 09:10] VITALS: BP 153/96; PULSE 85; RESP 16; TEMP 36.6
[2023-07-11 09:26] VITALS: BP 138/80
--- NOTE | 2023-07-11 10:32 | P.PN_ITS ---
Subjective 2 Subjective: Post date: pt seen 07/10/23 The patient is doing well. She is ambulating and tolerating a regular diet. She states that her bleeding is about average. Vitals/I&O/Wt Last Vital Signs Temp 97.9 F 07/11/23 09:10 Pulse 85 07/11/23 09:10 Resp 16 07/11/23 09:10 BP 153/96 07/11/23 09:10 Pulse Ox 96 07/11/23 04:00 O2 Del Method Room Air 07/11/23 09:10 Physical Exam 2 Narrative: Alert and oriented, walking around the room, heart regular rate and rhythm, lungs clear to auscultation bilaterally, abdomen soft and nontender, fundus is firm, extremities have 2+ edema but no calf tenderness Urinary Catheter Management: Bales: Cath Placed During This Visit: yes Reason for Continuing Indwelling Catheter: Required Immobilization for Trauma or Surgery or Anesthesia Urinary Catheter Date of Insertion: 07/09/23 Urinary Catheter Time of Insertion: 14:15 Data 07/10/23 09:18 A&P Assessment and plan (1) induced hypertension, delivered, current hospitalization: Her blood pressures have not required antihypertensives (2) (normal spontaneous vaginal delivery): Routine care Attestations 2 Medical Necessity Statement*: Routine care Coding Level of Care Code Acute Code for Chg Fwd Diagnoses induced hypertension, delivered, current hospitalization O13.4 (normal spontaneous vaginal delivery) O80
[2023-07-11 11:30] VITALS: BP 138/85; PULSE 80; RESP 16; TEMP 36.6
== END 2023-07-11 11:50 | disposition home or self-care (01) | DRG 807 ==
LOC: OPOB 16:56 → OBGYN 16:56
PROVIDERS: Admitting Provider Family Medicine; PCP Family Medicine; Visit Provider Family Medicine
DX: O13.4 Gestational [pregnancy-induced] hypertension without significant proteinuria, complicating childbirth (principal); Z37.0 Single live birth; Z3A.38 38 weeks gestation of pregnancy; O70.0 First degree perineal laceration during delivery
CPT/HCPCS: 36415; 51702; 59025; 59409; 85025; 85027; 86850; 86900; 96374; 98960; 99211; J2590; J2795; J3010; J7120; J7121

== ENCOUNTER 2024-01-18 19:31 | Emergency (ER) | payer BC, MEDICAID, SELFPAY ==
[2024-01-18 19:33] VITALS: BP 128/76; PULSE 90; RESP 14; TEMP 36.7; O2SAT 97
--- NOTE | 2024-01-18 19:58 | ED_ITS ---
HPI - Abdominal Pain 2 General: Chief Complaint: Abdominal Pain Stated Complaint: abd pain Time Seen by Provider: 01/18/24 19:46 History of Present Illness: 33-year-old female comes in today with c omplaints of epigastric pain. Patient has a history of GERD but has been off her medication for some time now. Patient reports over the last 4 days she has had some increasing abdominal discomfort with worsening symptoms today. Patient is reporting nausea today. 4 to 5 years ago patient did have endoscopy and a HIDA scan and at that time everything looked well. Patient denies alcohol use or tobacco use. Patient does use marijuana occasionally. Patient takes no routine medications. Associated Symptoms: Reports nausea Related Data Home Medications Medication Instructions Recorded Confirmed citalopram 10 mg tablet 10 mg PO BEDTIME 06/11/23 07/08/23 vit no.95-ferrous 3 tab PO BEDTIME 06/11/23 07/08/23 fumarate 28 mg-folic acid 800 mcg tablet ( Multivitamins) Previous Rx's Medication Instructions Recorded pantoprazole 40 mg tablet,delayed 40 mg PO QAM 4 weeks #28 tabs 01/18/24 release Allergies Allergy/AdvReac Type Severity Reaction Status Date / Time Penicillins Allergy Mild rash Verified 01/18/24 19:39 st tino Allergy rash Uncoded 01/18/24 19:39 Review of Systems 2 General: Reports: 10 or more systems reviewed and unremarkable except in HPI and below GI: Reports: abdominal pain and nausea PFSH ED 2 PFSH: Medical History No pertinent past medical history neghx: htn,dm,thyroid,dvt/pe PCP: Dr. Velazquez Umbilical hernia GERD (gastroesophageal reflux disease) Herniated disc History of anemia Surgical History H/O esophagogastroduodenoscopy (04/09/20) History of removal of cyst sebaceous cyst- on her cheek Family History Mother Breast cancer dx age 42-- stage 0; mastectomy no adjuvant therapy Grandmother Diabetes Paternal Heart disease Maternal Father Heart disease Hypertension Thyroid disease Denies family history of Colon cancer Ovarian cancer Uterine cancer Stroke Social History Smoking and tobacco/nicotine status: former use of tobacco/nicotine Substance/Drug Use: current Substance/Drug use frequency: Special occassions/opportunity only Other substance/drug use details: for anxiety Physical Exam 2 Const: COMMON NORMALS: alert HENMT: COMMON NORMALS: normocephalic HEAD & SCALP: normocephalic THROAT: posterior oropharynx normal Neck/C-Spine: COMMON NORMALS: full ROM Chest: COMMONS NORMALS: normal inspection of the chest Resp: COMMON NORMALS: normal respiratory effort and clear to auscultation bilaterally AUSCULTATION: clear to auscultation bilaterally Cardio: COMMON NORMALS: regular rate and regular rhythm RATE: regular rate RHYTHM: regular rhythm GI: COMMON NORMALS: Soft to palpation AUSCULTATION: Yes normoactive bowel sounds PALPATION: Yes Soft to palpation and Yes Tenderness to palpation present (GI) (epigastric) Back/Pelvis: COMMON NORMALS: thoracic and lumbar spine normal to inspection Extremity: COMMON NORMALS: no pedal edema Neuro: SENSORIUM/ORIENTATION: Yes alert Skin: COMMON NORMALS: turgor normal GENERAL SKIN EXAM: turgor normal Course 2 Vital Signs: Vital signs: Vital Signs Temperature 98.1 F 01/18/24 19:33 Pulse Rate 91 01/18/24 22:36 Respiratory Rate 16 01/18/24 21:30 Blood Pressure 133/88 01/18/24 22:36 Pulse Oximetry 95 01/18/24 22:36 Oxygen Delivery Me thod Room Air 01/18/24 22:00 MDM - Abdominal Pain Medical Decision Making 33-year-old female comes in today for complaints of abdominal discomfort. On exam patient has some epigastric tenderness. Vital signs are normal. Differential diagnosis includes GERD, gallbladder disease, pancreatitis, gastritis, peptic ulcer disease. CBC noted some leukocytosis at 15.5. CMP was unremarkable. Urinalysis unremarkable. CT of the abdomen and pelvis was performed with no significant abnormalities. Mild leukocytosis may be secondary to patient's nausea. Patient will be treated with pantoprazole for gastritis and gastroesophageal reflux disease. Patient will follow-up with primary care in 1 to 2 weeks for recheck. Return to ED for new concerns or worsening symptoms. Lab Data 01/18/24 19:50 01/18/24 19:50 Labs/Radiology: Radiology Impressions Abdomen/Pelvis CT 01/18/24 20:37 IMPRESSION: 1. No acute findings in the abdomen/pelvis. 2. Asymmetric prominence of right breast tissue, possibly related to portions of the breasts included in the field of view. Correlate with physical exam findings and consider dedicated breast imaging if there is clinical concern. Laboratory Results WBC 15.50 10^3/uL (3.29-11.43) H 01/18/24 19:50 RBC 4.30 10^6/uL (3.85-5.65) 01/18/24 19:50 Hgb 13.00 g/dL (11.27-16.99) 01/18/24 19:50 Hct 39.1 % (36-47) 01/18/24 19:50 MCV 90.9 fl (85-98) 01/18/24 19:50 MCH 30.2 pg (27-33) 01/18/24 19:50 MCHC 33.2 g/dL (30-55) 01/18/24 19:50 RDW 12.4 % (12.1-15.1) 01/18/24 19:50 Plt Count 286 10^3/cmm (157-399) 01/18/24 19:50 MPV 9.6 fL (7.4-10.4) 01/18/24 19:50 Neut % (Auto) 86.1 % 01/18/24 19:50 Lymph % (Auto) 7.5 % 01/18/24 19:50 [place] % (Auto) 5.7 % 01/18/24 19:50 Eos % (Auto) 0.1 % 01/18/24 19:50 Baso % (Auto) 0.3 % 01/18/24 19:50 Neut # (Auto) 13.34 10^3/uL (1.8-7.7) H 01/18/24 19:50 Lymph # (Auto) 1.2 10^3/uL (0.8-4.8) 01/18/24 19:50 [place] # (Auto) 0.9 10^3/uL (0.2-0.9) 01/18/24 19:50 Eos # (Auto) 0.0 10^3/uL (0.0-0.8) 01/18/24 19:50 Baso # (Auto) 0.1 10^3/uL (0.0-0.1) 01/18/24 19:50 Nucleated RBC % (auto) 0 % 01/18/24 19:50 Nucleated RBCs # 0.0 /100WBC 01/18/24 19:50 Sodium 140 mmol/L (136-145) 01/18/24 19:50 Potassium 3.9 mmol/L (3.5-5.1) 01/18/24 19:50 Chloride 101 mmol/L (98-107) 01/18/24 19:50 Carbon Dioxide 25 mmol/L (22-29) 01/18/24 19:50 Anion Gap 17.9 (5-19) 01/18/24 19:50 BUN 10 mg/dL (6-20) 01/18/24 19:50 Creatinine 0.6 mg/dL (0.5-0.9) 01/18/24 19:50 GFR Calculation 113.8 mL/min (90-130) 01/18/24 19:50 Glucose 114 mg/dL (65-115) 01/18/24 19:50 Calculated Osmolality 290 mOsm/kg (285-295) 01/18/24 19:50 Calcium 9.6 mg/dL (8.5-10.5) 01/18/24 19:50 Total Bilirubin 0.6 mg/dL (0.15-1.2) 01/18/24 19:50 AST 12 U/L (0-32) 01/18/24 19:50 ALT 10 U/L (0-33) 01/18/24 19:50 Alkaline Phosphatase 103 U/L (35-105) 01/18/24 19:50 Total Protein 7.7 g/dL (6.6-8.7) 01/18/24 19:50 Albumin 4.7 g/dL (3.5-5.2) 01/18/24 19:50 Globulin 3.0 g/dL (1.3-4.6) 01/18/24 19:50 Lipase 33 U/L (13-60) 01/18/24 19:50 HCG, Qual Negative (Negative) 01/18/24 19:50 Urine Color Yellow (Yellow) 01/18/24 21:36 Urine Appearance Clear (CLEAR) 01/18/24 21:36 Urine pH 6.0 (5-7) 01/18/24 21:36 Ur Specific [place] 1.061 (1.005-1.030) H 01/18/24 21:36 Urine Protein Negative (Negative) 01/18/24 21:36 Urine Glucose (UA) Negative (Normal) 01/18/24 21:36 Urine Ketones Negative (Negative) 01/18/24 21:36 Urine Blood Negative (Negative) 01/18/24 21:36 Urine Nitrate Negative (Negative) 01/18/24 21:36 Urine Bilirubin Negative (Negative) 01/18/24 21:36 Urine Urobilinogen 0.2 mg/dL (Negative) 01/18/24 21:36 Ur Leukocyte Esterase Negative (Negative) 01/18/24 21:36 Urine RBC 0-2 /hpf (0-2) 01/18/24 21:36 Urine WBC 0-5 /hpf (0-5) 01/18/24 21:36 Ur Squamous Epith Cells 0-5 /hpf (0-5) 01/18/24 21:36 Amorphous Sediment Not Reportable 01/18/24 21:36 Urine Bacteria None seen /hpf (NONE) 01/18/24 21:36 Hyaline Casts 0.40 /lpf 01/18/24 21:36 All radiology interpretation(s) finalized by discharge Discharge Plan Discharge Patient Disposition: Home Clinical Impression: Abdominal pain Qualifiers: Abdominal location: generalized Qualified Code(s): R10.84 - Generalized abdominal pain GERD (gastroesophageal reflux disease) Qualifiers: Esophagitis presence: esophagitis presence not specified Qualified Code(s): K 21.9 - Gastro-esophageal reflux disease without esophagitis Condition: Stable Prescriptions: New pantoprazole 40 mg tablet,delayed release (DR/EC) 40 mg PO QAM 28 Days Qty: 28 2RF No Action PNV cmb#95-ferrous fumarate-FA [ Multivitamins] 28 mg iron- 800 mcg Tablet 3 tab PO BEDTIME citalopram 10 mg tablet 10 mg PO BEDTIME Discharge Orders: Discharge ED (Routine); Ordered 01/18/24 Ordered By: Jose Barron Referrals: Radhika Armendariz MD [Primary Care Provider] - Discharge Diet: Usual diet Discharge Activity: Increase activity as tolerated Patient Instructions: Diet for Stomach Ulcers and Gastritis (ED), Abdominal Pain (ED) Activity Restrictions/Additional Instructions: Light diet. Drink plenty of fluids. Follow-up with primary care in 1 week for recheck. Return to ED for worsening symptoms such as fever greater than 100.4, blood in vomit or stool, or worsening pain. Coding Level of Care Code ED [employer] for Meghann Bacon
[2024-01-18 20:23] LABS: Basophils # 0.1 10^3/uL (0.0-0.1); Basophils % 0.3 %; Eosinophils % 0.1 %; Hematocrit 39.1 % (36-47); Lymphocytes # 1.2 10^3/uL (0.8-4.8); Lymphocytes % 7.5 %; Mean Corpuscular HGB Conc 33.2 g/dL (30-55); Mean Corpuscular Hemoglobin 30.2 pg (27-33); Mean Corpuscular Volume 90.9 fl (85-98); Mean Platelet Volume 9.6 fL (7.4-10.4); Monocytes # 0.9 10^3/uL (0.2-0.9); Monocytes % 5.7 %; Neutrophils # 13.34 10^3/uL (1.8-7.7); Neutrophils % 86.1 %; Nucleated Red Blood Cells % 0 %; Platelet Count 286 10^3/cmm (157-399); Red Cell Distribution Width 12.4 % (12.1-15.1)
--- NOTE | 2024-01-18 20:37 | CTR_ITS ---
PROCEDURE INFORMATION: Exam: CT Abdomen And Pelvis With Contrast Exam date and time: 01/18/2024 9:09 PM Age: 33 years old Clinical indication: Abdominal pain; Additional info: Abd pain TECHNIQUE: Imaging protocol: Computed tomography of the abdomen and pelvis with contrast. Radiation optimization: All CT scans at this facility use at least one of these dose optimization techniques: automated exposure control; mA and/or kV adjustment per patient size (includes targeted exams where dose is matched to clinical indication); or iterative reconstruction. Contrast material: OMNI 350; Contrast volume: 100 ml; Contrast route: INTRAVENOUS (IV); COMPARISON: US OB >= 14 weeks fetus [id number] 02/27/2023 2:51 PM RADIATION DOSE METRICS: Total DLP (mGy-cm): 1122 FINDINGS: Liver: Normal. No mass. Gallbladder and biliary ducts: Normal. No calcified stones. No ductal dilation. Pancreas: Normal. No ductal dilation. Spleen: Normal. No splenomegaly. Adrenal glands: Normal. No mass. Kidneys and ureters: Normal. No hydronephrosis. Stomach and bowel: Unremarkable. No obstruction. No mucosal thickening. Appendix: No evidence of appendicitis. Intraperitoneal space: Unremarkable. No free air. No significant fluid collection. Vasculature: Unremarkable. No abdominal aortic aneurysm. Lymph nodes: Unremarkable. No enlarged lymph nodes. Urinary bladder: Unremarkable as visualized. Reproductive: Unremarkable as visualized. Bones/joints: Symmetric sclerosis along the iliac aspects of the sacroiliac joints. Soft tissues: Small fat containing umbilical hernia. Asymmetricly prominent right breast tissue. CT/CT abdomen pelvis w con* [id number] IMPRESSION: 1. No acute findings in the abdomen/pelvis. 2. Asymmetric prominence of right breast tissue, possibly related to portions of the breasts included in the field of view. Correlate with physical exam findings and consider dedicated breast imaging if there is clinical concern.
[2024-01-18 20:41] LABS: HCG, Serum Qual Negative (Negative)
[2024-01-18 20:44] LABS: Alanine Aminotransferase 10 U/L (0-33); Albumin Level 4.7 g/dL (3.5-5.2); Alkaline Phosphatase 103 U/L (35-105); Anion Gap 17.9 (5-19); Aspartate Amino Transferase 12 U/L (0-32); Blood Urea Nitrogen 10 mg/dL (6-20); Calcium 9.6 mg/dL (8.5-10.5); Carbon Dioxide 25 mmol/L (22-29); Chloride 101 mmol/L (98-107); Creatinine Clr Calc Pharmacy 181.4733; Glomerular Filtration Rate 113.8 mL/min (90-130); Glucose 114 mg/dL (65-115); Lipase 33 U/L (13-60); Osmolality Calculated 290 mOsm/kg (285-295); Potassium 3.9 mmol/L (3.5-5.1); Sodium 140 mmol/L (136-145); Total Bilirubin 0.6 mg/dL (0.15-1.2); Total Protein 7.7 g/dL (6.6-8.7)
[2024-01-18] MEDS: lidocaine 2% viscous 15 ML, aluminum-mag hydrox-simethicon 30 ML, sucralfate oral liq 1 GM PO (20:58)
[2024-01-18] MEDS: ondansetron 2 mg/ML SDV 2 mL 4 MG IVP (21:00)
[2024-01-18] MEDS: lactated ringers 1,000 ML 999 ML IV (21:02)
[2024-01-18 21:05] VITALS: BP 107/86; PULSE 99; RESP 16; O2SAT 98
[2024-01-18] MEDS: iohexol 350 mg/mL 500 mL Btl (per mL) IV (21:13)
[2024-01-18 21:30] VITALS: BP 132/92; PULSE 92; RESP 16; O2SAT 96
[2024-01-18 21:49] LABS: Bilirubin Urine Negative (Negative); Blood Urine Negative (Negative); Glucose Urine UA Negative (Normal); Ketones Urine Negative (Negative); Leukocyte Esterase Urine Negative (Negative); Nitrate Urine Negative (Negative); Protein Urine Negative (Negative); Urine Appearance Clear (CLEAR); Urine Color Yellow (Yellow); Urobilinogen Urine 0.2 mg/dL (Negative)
[2024-01-18 21:52] LABS: Add Urine Microscopic? YES; Bacteria Urine None Seen /hpf; RBC Urine 0-2 /hpf (0-2); Squamous Epithelial Cell Urine 0-5 /hpf (0-5); WBC Urine 0-5 /hpf (0-5)
[2024-01-18 22:00] VITALS: BP 113/74; PULSE 83; O2SAT 97
[2024-01-18 22:02] LABS: Specific Gravity, Urine 1.061 (1.005-1.030)
[2024-01-18] MEDS: pantoprazole 40 mg SDV IVP (22:30)
[2024-01-18 22:36] VITALS: BP 133/88; PULSE 91; O2SAT 95
== END 2024-01-18 22:37 | disposition home or self-care (01) ==
PROVIDERS: Emergency Medicine; Emergency Provider Nurse Practitioner Family; PCP Family Medicine
DX: R10.84 Generalized abdominal pain (principal); K21.9 Gastro-esophageal reflux disease without esophagitis; Z87.891 Personal history of nicotine dependence
CPT/HCPCS: 36415; 74177; 80053; 81001; 83690; 84703; 85025; 96361; 96374; 96375; 99285; J2405; J2470; J7120

== ENCOUNTER 2024-08-26 10:29 | Outpatient (CLI) | payer BC, SELFPAY ==
--- NOTE | 2024-08-26 10:41 | XRR_ITS ---
PROCEDURE INFORMATION: Exam: XR Chest Exam date and time: 08/26/2024 10:52 AM Age: 33 years old Clinical indication: Pain; Cough; Chest pressure; Additional info: Chronic cough TECHNIQUE: Imaging protocol: Radiologic exam of the chest. Views: 2 views. COMPARISON: CR XR chest 1V portable [id number] 05/28/2023 5:49 PM FINDINGS: Lungs: Unremarkable. No consolidation. Pleural spaces: Unremarkable. No pleural effusion. No pneumothorax. Heart/Mediastinum: Unremarkable. No cardiomegaly. Bones/joints: Unremarkable. XR/XR chest 2V* [id number] IMPRESSION: No acute findings.
== END 2024-08-26 10:30 | disposition home or self-care (01) ==
PROVIDERS: PCP Family Medicine; Visit Provider Family Medicine
DX: R05.3 Chronic cough (principal)
CPT/HCPCS: 71046